=== PATIENT | male | born 1965 | race African-American/Black ===

== ENCOUNTER 2016-11-12 21:29 | Emergency (ER) | payer OTHER ==
[~2016-11-12] VITALS: Ht 185.4 cm; Wt 95.0 kg
[2016-11-12 22:10] VITALS: BP 117/75; PULSE 71; RESP 16; TEMP 98.3; O2SAT 97
[2016-11-12] MEDS ORDERED: SODIUM CHLORIDE 0.9% FLUSH 5 ML FLUSH IVF PRN (23:00)
[2016-11-12] MEDS ORDERED: SODIUM CHLOR 0.9% 1000 ML INJ 1,000 ML IV ONE (23:00)
--- NOTE | 2016-11-12 23:00 | PD ---
HPI . Altered mental status Chief Complaint: Alcohol/Drug Intoxication Time Seen by Provider: 22:53 Travel History International Travel<30 days: No Contact w/Intl Traveler<30days: No Traveled to known affect area: No History of Present Illness HPI Patient was brought to us via [facility] being found asleep on a sidewalk. The patient is reportedly complaining with body aches. PFSH Past Medical History Arthritis: Yes (RA) Heart Rhythm Problems: No Cardiac Catheterization: No Cardiovascular Problems: Yes (HTN-OFF MEDS FOR YRS) High Cholesterol: No Chest Pain: Yes Congestive Heart Failure: No Diabetes: No Diminished Hearing: No Heparin Induced Thrombocytopen: No Hypertension: Yes Musculoskeletal: Yes (CHRONIC PAIN, SCIATICA) Immunizations Current: Yes Seizures: Yes Tetanus Vaccination: Unknown Influenza Vaccination: No Past Surgical History Coronary Artery Bypass Graft: No Family History Family Myocardial Infarction: No Social History Alcohol Use: Yes (to many to count) Tobacco Use: Yes (one pack a day) Substance Use: No Allergies-Medications (Allergen,Severity, Reaction): Coded Allergies: Lisinopril (Verified Allergy, Severe, Rash, 11/12/16) Metoprolol (Verified Allergy, Severe, 11/12/16) Motrin (Verified Allergy, Severe, Hives, 11/12/16) Naproxen (Verified Allergy, Severe, Hives, 11/12/16) Tramadol (Verified Allergy, Severe, Hives, 11/12/16) Reported Meds & Prescriptions Reported Meds & Active Scripts Active No Active Prescriptions or Reported Medications Review of Systems ROS Limitations: Altered Mental Status Except as stated in HPI: all other systems reviewed are Neg Musculoskeletal: Positive: Myalgias Psychiatric: Positive: Substance Abuse Physical Exam Narrative GENERAL: The patient is sitting on the end of the stretcher snoring, brown naked with his penis in a urinal. SKIN: Warm and dry. HEAD: Atraumatic. Normocephalic. EYES: Pupils equal and round. ENT: No nasal bleeding or discharge. Mucous membranes pink and moist. NECK: Trachea midline. CARDIOVASCULAR: Regular rate and rhythm. RESPIRATORY: No accessory muscle use. Lungs are clear. No airway compromise. GASTROINTESTINAL: Abdomen soft, non-tender, nondistended. MUSCULOSKELETAL: No obvious deformities. No edema. NEUROLOGICAL: Awake and alert. No obvious cranial nerve deficits. Motor grossly within normal limits. Normal speech. PSYCHIATRIC: Appropriate mood and affect; insight and judgment poor. Data Data Last Documented VS Vital Signs Date Time Temp Pulse Resp B/P Pulse Ox O2 Delivery O2 Flow Rate FiO2 11/12/16 22:10 98.3 71 16 117/75 97 Orders Complete Blood Count With Diff (11/12/16 22:53) Basic Metabolic Panel (Bmp) (11/12/16 22:53) Drug Screen, Random Urine (11/12/16 22:53) Iv Access Insert/Monitor (11/12/16 22:53) Alcohol (Ethanol) (11/12/16 22:53) Sodium Chloride 0.9% Flush (Ns Flush) (11/12/16 23:00) Sodium Chlor 0.9% 1000 Ml Inj (Ns 1000 M (11/12/16 23:00) Creatine Kinase (Cpk) (11/12/16 22:53) Labs Laboratory Tests Test 11/12/16 23:00 Urine Opiates Screen NEG Urine Barbiturates Screen NEG Urine Amphetamines Screen NEG Urine Benzodiazepines Screen NEG Urine Cocaine Screen NEG Urine Cannabinoids Screen NEG White Blood Count 2.8 TH/MM3 Red Blood Count 3.53 MIL/MM3 Hemoglobin 11.7 GM/DL Hematocrit 33.8 % Mean Corpuscular Volume 95.6 FL Mean Corpuscular Hemoglobin 33.0 PG Mean Corpuscular Hemoglobin 34.5 % Concent Red Cell Distribution Width 13.6 % Platelet Count 231 TH/MM3 Mean Platelet Volume 7.5 FL Neutrophils (%) (Auto) 30.7 % Lymphocytes (%) (Auto) 56.9 % Monocytes (%) (Auto) 9.8 % Eosinophils (%) (Auto) 0.5 % Basophils (%) (Auto) 2.1 % Neutrophils # (Auto) 0.8 TH/MM3 Lymphocytes # (Auto) 1.6 TH/MM3 Monocytes # (Auto) 0.3 TH/MM3 Eosinophils # (Auto) 0.0 TH/MM3 Basophils # (Auto) 0.1 TH/MM3 CBC Comment AUTO DIFF Differential Total Cells 100 Counted Neutrophils % (Manual) 32 % Lymphocytes % 62 % Monocytes % 3 % Eosinophils % 2 % Basophils % 1 % Neutrophils # (Manual) 0.9 TH/MM3 Differential Comment FINAL DIFF MANUAL Platelet Estimate NORMAL Platelet Morphology Comment NORMAL Red Cell Morphology Comment NORMAL Sodium Level 138 MEQ/L Potassium Level 3.8 MEQ/L Chloride Level 103 MEQ/L Carbon Dioxide Level 25.7 MEQ/L Anion Gap 9 MEQ/L Blood Urea Nitrogen 10 MG/DL Creatinine 0.51 MG/DL Estimat Glomerular Filtration 207 ML/MIN Rate Random Glucose 86 MG/DL Calcium Level 8.1 MG/DL Total Creatine Kinase 233 U/L Ethyl Alcohol Level 374 MG/DL [facility] Medical Decision Making Medical Screen Exam Complete: Yes Emergency Medical Condition: Yes Differential Diagnosis Differential diagnosis of altered mental status includes but is not limited to infection, electrolyte abnormality, neurological event, intoxication Narrative Course Patient is brought to us by [facility] after being found asleep on a sidewalk. He admits to alcohol use. CBC has an H&H of 11.7 and 33.8. White blood count is 2.8. Chemistries are unremarkable. Alcohol level is 374. Drug screen is negative. The patient is now sleeping soundly in the bed. He is medically clear for discharge when he meghana up. Diagnosis Primary Impression: Alcohol intoxication in active alcoholic Qualified Code: F10.220 - Alcohol intoxication in active alcoholic, uncomplicated Scripts No Active Prescriptions or Reported Meds Disposition: DISCHARGE HOME Condition: Stable Denita Miles MD Nov 12, 2016 23:00
[2016-11-12 23:33] LABS: AUTOMATED NEUTROPHIL # 0.8 TH/MM3 (1.8-7.7); BASOPHIL # 0.1 TH/MM3 (0-0.2); BASOPHIL % 2.1 % (0.0-2.0); EOSINOPHIL % 0.5 % (0.0-4.0); HEMATOCRIT 33.8 % (39.0-51.0); LYMPH % 56.9 % (9.0-44.0); LYMPHOCYTE # 1.6 TH/MM3 (1.0-4.8); MEAN CELL VOLUME 95.6 FL (80.0-100.0); MEAN CORPUSCULAR HGB CONC 34.5 % (32.0-36.0); MONO % 9.8 % (0.0-8.0); NEUT % 30.7 % (16.0-70.0); PLATELET COUNT 231 TH/MM3 (150-450); RED BLOOD COUNT 3.53 MIL/MM3 (4.50-5.90); RED CELL DISTRIBUTION WIDTH 13.6 % (11.6-17.2); WHITE BLOOD COUNT 2.8 TH/MM3 (4.0-11.0)
[2016-11-12 23:36] LABS: HEMO FLAGS AUTO DIFF
[2016-11-12 23:45] LABS: AMPHETAMINE, URINE NEG (NEG); BARBITURATES, URINE NEG (NEG); COCAINE, URINE NEG (NEG)
[2016-11-12 23:57] LABS: BICARBONATE 25.7 MEQ/L (21.0-32.0); POTASSIUM 3.8 MEQ/L (3.5-5.1)
[2016-11-13 00:09] LABS: BASOPHILS 1 % (0-2); EOSINOPHILS 2 % (0-4); NEUTROPHIL # MANUAL DIFF 0.9 TH/MM3 (1.8-7.7); PLATELET ESTIMATE SMEAR NORMAL (NORMAL); PLATELET MORPHOLOGY NORMAL (NORMAL); POLYS (SEG NEUTROPHILS) 32 % (16-70); SCAN/DIFF FINAL DIFF MANUAL; WBC DIFF SAMPLE 100
[2016-11-13 05:00] VITALS: BP 144/90; PULSE 100; RESP 20; O2SAT 97
== END 2016-11-13 07:00 | disposition home or self-care (01) ==
LOC: NEPC 21:29
DX: F10.220 Alcohol dependence with intoxication, uncomplicated (principal); M79.1 Myalgia; I10 Essential (primary) hypertension; F17.200 Nicotine dependence, unspecified, uncomplicated; Z87.39 Personal history of other diseases of the musculoskeletal system and connective tissue; Z86.69 Personal history of other diseases of the nervous system and sense organs
CPT/HCPCS: 80048; 80307; 80320; 82550; 85007; 85027; 99285; J7030

== ENCOUNTER 2016-11-16 12:33 | Emergency (ER) | payer OTHER ==
[~2016-11-16] VITALS: Ht 175.3 cm; Wt 95.0 kg
[2016-11-16 13:40] VITALS: BP 155/102; PULSE 87; RESP 20; TEMP 98.1; O2SAT 100
[2016-11-16] MEDS ORDERED: THIAMINE INJ 100 MG in SODIUM CHLORIDE 0.9% INJ 100 ML IV ONE (14:00)
[2016-11-16] MEDS ORDERED: SODIUM CHLOR 0.9% 1000 ML INJ 1,000 ML IV ONE (14:00)
[2016-11-16 14:01] LABS: AUTOMATED NEUTROPHIL # 1.6 TH/MM3 (1.8-7.7); BASOPHIL % 0.4 % (0.0-2.0); EOSINOPHIL % 0.5 % (0.0-4.0); HEMO FLAGS DIFF FINAL; LYMPH % 30.8 % (9.0-44.0); LYMPHOCYTE # 0.9 TH/MM3 (1.0-4.8); MEAN CELL VOLUME 96.8 FL (80.0-100.0); MEAN CORPUSCULAR HEMOGLOBIN 32.8 PG (27.0-34.0); MEAN CORPUSCULAR HGB CONC 33.8 % (32.0-36.0); MONO % 12.2 % (0.0-8.0); NEUT % 56.1 % (16.0-70.0); PLATELET COUNT 286 TH/MM3 (150-450); RED BLOOD COUNT 3.71 MIL/MM3 (4.50-5.90); RED CELL DISTRIBUTION WIDTH 13.8 % (11.6-17.2); WHITE BLOOD COUNT 2.8 TH/MM3 (4.0-11.0)
[2016-11-16 14:15] LABS: BICARBONATE 27.1 MEQ/L (21.0-32.0); POTASSIUM 3.8 MEQ/L (3.5-5.1)
[2016-11-16 15:02] VITALS: BP 150/83; PULSE 79; RESP 16; O2SAT 97
--- NOTE | 2016-11-16 15:20 | PD ---
HPI Chief Complaint: Seizure Time Seen by Provider: 13:46 Travel History International Travel<30 days: No Contact w/Intl Traveler<30days: No Traveled to known affect area: No History of Present Illness HPI Patient is a 51-year-old male presents to the emergency Department after having a seizure. Patient apparent fell down into a small ditch with intracranial pressure by saw him and call 911. 911 helped him out of the ditch and states it was just enough water and therefore him to be covered. He presents somewhat closed this time. Patient has no complaints of time. States he was walking at home and fell down into the small ditch. Patient states he had been drinking today. EMS stated no obvious injuries were seen. [facility] Past Medical History Arthritis: Yes (RA) Heart Rhythm Problems: No Cardiac Catheterization: No Cardiovascular Problems: Yes (HTN) High Cholesterol: No Chest Pain: Yes Congestive Heart Failure: No Diabetes: No Diminished Hearing: No Heparin Induced Thrombocytopen: No Hypertension: Yes Musculoskeletal: Yes (CHRONIC PAIN, SCIATICA) Immunizations Current: Yes Seizures: Yes Tetanus Vaccination: Unknown Past Surgical History Coronary Artery Bypass Graft: No Social History Alcohol Use: Yes (to many to count) Tobacco Use: Yes (one pack a day) Substance Use: No Allergies-Medications (Allergen,Severity, Reaction): Coded Allergies: Lisinopril (Verified Allergy, Severe, Rash, 11/16/16) Metoprolol (Verified Allergy, Severe, 11/16/16) Motrin (Verified Allergy, Severe, Hives, 11/16/16) Naproxen (Verified Allergy, Severe, Hives, 11/16/16) Tramadol (Verified Allergy, Severe, Hives, 11/16/16) Reported Meds & Prescriptions Reported Meds & Active Scripts Active No Active Prescriptions or Reported Medications Review of Systems Except as stated in HPI: all other systems reviewed are Neg Physical Exam Narrative GENERAL: Well-developed well-nourished in no apparent distress SKIN: Warm and dry. HEAD: Atraumatic. Normocephalic. EYES: Pupils equal and round. No scleral icterus. No injection or drainage. ENT: No nasal bleeding or discharge. Mucous membranes pink and moist. NECK: Trachea midline. No JVD. CARDIOVASCULAR: Regular rate and rhythm. No murmur appreciated. RESPIRATORY: No accessory muscle use. Clear to auscultation. Breath sounds equal bilaterally. GASTROINTESTINAL: Abdomen soft, non-tender, nondistended. Hepatic and splenic margins not palpable. MUSCULOSKELETAL: No obvious deformities. No clubbing. No cyanosis. No edema. NEUROLOGICAL: Awake and alert. cranial nerves II through XII grossly intact nonfocal, 5-5 strength in all 4 extremities, cerebral testing normal on individual extremity basis however the patient is having imbalanced gait like was secondary to a alcohol intoxication based on his history. PSYCHIATRIC: Appropriate mood and affect; insight and judgment normal. Data Data Last Documented VS Vital Signs Date Time Temp Pulse Resp B/P Pulse Ox O2 Delivery O2 Flow Rate FiO2 11/16/16 15:37 87 20 149/89 94 11/16/16 13:40 98.1 Orders Basic Metabolic Panel (Bmp) (11/16/16 13:46) Complete Blood Count With Diff (11/16/16 13:46) Thiamine Inj (Thiamine Inj) (11/16/16 14:00) Sodium Chlor 0.9% 1000 Ml Inj (Ns 1000 M (11/16/16 14:00) Labs Laboratory Tests Test 11/16/16 13:55 White Blood Count 2.8 TH/MM3 Red Blood Count 3.71 MIL/MM3 Hemoglobin 12.2 GM/DL Hematocrit 36.0 % Mean Corpuscular Volume 96.8 FL Mean Corpuscular Hemoglobin 32.8 PG Mean Corpuscular Hemoglobin 33.8 % Concent Red Cell Distribution Width 13.8 % Platelet Count 286 TH/MM3 Mean Platelet Volume 6.8 FL Neutrophils (%) (Auto) 56.1 % Lymphocytes (%) (Auto) 30.8 % Monocytes (%) (Auto) 12.2 % Eosinophils (%) (Auto) 0.5 % Basophils (%) (Auto) 0.4 % Neutrophils # (Auto) 1.6 TH/MM3 Lymphocytes # (Auto) 0.9 TH/MM3 Monocytes # (Auto) 0.3 TH/MM3 Eosinophils # (Auto) 0.0 TH/MM3 Basophils # (Auto) 0.0 TH/MM3 CBC Comment DIFF FINAL Differential Comment Sodium Level 138 MEQ/L Potassium Level 3.8 MEQ/L Chloride Level 104 MEQ/L Carbon Dioxide Level 27.1 MEQ/L Anion Gap 7 MEQ/L Blood Urea Nitrogen 7 MG/DL Creatinine 0.59 MG/DL Estimat Glomerular Filtration 175 ML/MIN Rate Random Glucose 102 MG/DL Calcium Level 8.0 MG/DL [facility] Medical Decision Making Medical Screen Exam Complete: Yes Emergency Medical Condition: Yes Differential Diagnosis electrolyte abnormality, alcohol intoxication, alcoholism. Narrative Course Patient remained emergency department, he was observed for 3 hours in the emergency department and it hadn't no recurrent seizure activity. Patient had is cleared by Offerman CT head rule. Patient appears well in no apparent distress. He is clinically intoxicated will be allowed to remain in the emergency Department until clinically sober. Given his history and his chart review he has been noncompliant with seizure treatment in the past. The alcohol related seizures. He is not exhibiting symptoms of acute withdrawal or delirium tremens. Patient was initially marked as SIO in the department but then walked to the counter where nursing was sitting asking to go. He does endorse alcohol ingestion today but is clinically sober at this time. He has no indication to hold against his will and is stable for discharge. Diagnosis Primary Impression: Seizure Additional Impression: Alcohol intoxication in active alcoholic Qualified Code: F10.220 - Alcohol intoxication in active alcoholic, uncomplicated Scripts No Active Prescriptions or Reported Meds Disposition: 01 DISCHARGE HOME Condition: Stable Atul Rogers MD Nov 16, 2016 15:20
[2016-11-16 15:37] VITALS: BP 149/89
== END 2016-11-16 15:53 | disposition home or self-care (01) ==
LOC: NEPA 12:33
DX: R56.9 Unspecified convulsions (principal); F10.220 Alcohol dependence with intoxication, uncomplicated; I10 Essential (primary) hypertension; F17.210 Nicotine dependence, cigarettes, uncomplicated
CPT/HCPCS: 80048; 85025; 96374; 99284; J3411; J7030

== ENCOUNTER 2016-11-21 23:06 | Emergency (ER) | payer OTHER ==
[~2016-11-21] VITALS: Ht 180.3 cm; Wt 95.0 kg
[2016-11-21 23:10] VITALS: BP 129/81; PULSE 99; RESP 16; TEMP 98; O2SAT 99
[2016-11-21] MEDS ORDERED: ONDANSETRON HCL 4 MG/2 ML VIAL IV ONE (23:30)
[2016-11-21] MEDS ORDERED: SODIUM CHLOR 0.9% 1000 ML INJ 1,000 ML IV ONE (23:30)
[2016-11-21 23:48] LABS: AUTOMATED NEUTROPHIL # 2.4 TH/MM3 (1.8-7.7); BASOPHIL % 0.9 % (0.0-2.0); EOSINOPHIL % 0.7 % (0.0-4.0); HEMATOCRIT 37.3 % (39.0-51.0); HEMO FLAGS DIFF FINAL; LYMPHOCYTE # 1.3 TH/MM3 (1.0-4.8); MEAN CELL VOLUME 96.6 FL (80.0-100.0); MEAN CORPUSCULAR HEMOGLOBIN 33.3 PG (27.0-34.0); MEAN CORPUSCULAR HGB CONC 34.5 % (32.0-36.0); MONO % 11.6 % (0.0-8.0); NEUT % 56.8 % (16.0-70.0); PLATELET COUNT 194 TH/MM3 (150-450); RED BLOOD COUNT 3.86 MIL/MM3 (4.50-5.90); RED CELL DISTRIBUTION WIDTH 13.9 % (11.6-17.2); WHITE BLOOD COUNT 4.2 TH/MM3 (4.0-11.0)
[2016-11-22] LABS: ALT (GPT) 138 U/L (12-78); ANION GAP 11 MEQ/L (5-15); AST (GOT) 157 U/L (15-37); BICARBONATE 25.1 MEQ/L (21.0-32.0); BLOOD UREA NITROGEN 12 MG/DL (7-18); CHLORIDE 97 MEQ/L (98-107); GLOMERULAR FILTRATION RATE 101 ML/MIN (>89); POTASSIUM 3.4 MEQ/L (3.5-5.1); SODIUM (NA) 133 MEQ/L (136-145)
[2016-11-22 00:02] LABS: ALKALINE PHOSPHATASE 83 U/L (45-117); TOTAL BILIRUBIN ADULT 0.8 MG/DL (0.2-1.0)
[2016-11-22] MEDS ORDERED: ZOFR4TAB3 SL (00:52)
[2016-11-22] MEDS ORDERED: RANI150C PO (00:52)
--- NOTE | 2016-11-22 00:52 | PD ---
HPI Chief Complaint: GI Complaint Time Seen by Provider: 23:17 Travel History International Travel<30 days: No Contact w/Intl Traveler<30days: No Traveled to known affect area: No History of Present Illness HPI So 51-year-old man who presents to the emergency department complaining nausea vomiting since today. He has a history of alcohol use. He's had seizures several times related to alcohol use. He last drank earlier today. Presents with nausea vomiting and some diffuse abdominal discomfort. No diarrhea. No other complaints. History Past Medical History Narrative Medical Alcoholism History of high blood pressure Tetanus Vaccination: Unknown Influenza Vaccination: No Social History Alcohol Use: Yes (to many to count) Tobacco Use: Yes (one pack a day) Allergies-Medications (Allergen,Severity, Reaction): Coded Allergies: Lisinopril (Verified Allergy, Severe, Rash, 11/21/16) Metoprolol (Verified Allergy, Severe, 11/21/16) Motrin (Verified Allergy, Severe, Hives, 11/21/16) Naproxen (Verified Allergy, Severe, Hives, 11/21/16) Tramadol (Verified Allergy, Severe, Hives, 11/21/16) Reported Meds & Prescriptions Reported Meds & Active Scripts Active No Active Prescriptions or Reported Medications Review of Systems Except as stated in HPI: all other systems reviewed are Neg Physical Exam Narrative GENERAL: 51 year-old woman, no acute distress. SKIN: Warm and dry. CARDIOVASCULAR: Regular rate and rhythm. No murmur appreciated. RESPIRATORY: No accessory muscle use. Clear to auscultation. Breath sounds equal bilaterally. GASTROINTESTINAL: Abdomen soft, non-tender, nondistended. Hepatic and splenic margins not palpable. MUSCULOSKELETAL: No obvious deformities. No clubbing. No cyanosis. No edema. NEUROLOGICAL: Awake and alert. No obvious cranial nerve deficits. Motor grossly within normal limits. Normal speech. Data Data Last Documented VS Vital Signs Date Time Temp Pulse Resp B/P Pulse Ox O2 Delivery O2 Flow Rate FiO2 11/21/16 23:10 98.0 99 16 129/81 99 Room Air Orders Complete Blood Count With Diff (11/21/16 23:23) Comprehensive Metabolic Panel (11/21/16 23:23) Iv Access Insert/Monitor (11/21/16 23:23) Lipase (11/21/16 23:23) Sodium Chlor 0.9% 1000 Ml Inj (Ns 1000 M (11/21/16 23:30) Ondansetron Inj (Zofran Inj) (11/21/16 23:30) Labs Laboratory Tests Test 11/21/16 23:35 White Blood Count 4.2 TH/MM3 Red Blood Count 3.86 MIL/MM3 Hemoglobin 12.9 GM/DL Hematocrit 37.3 % Mean Corpuscular Volume 96.6 FL Mean Corpuscular Hemoglobin 33.3 PG Mean Corpuscular Hemoglobin 34.5 % Concent Red Cell Distribution Width 13.9 % Platelet Count 194 TH/MM3 Mean Platelet Volume 8.2 FL Neutrophils (%) (Auto) 56.8 % Lymphocytes (%) (Auto) 30.0 % Monocytes (%) (Auto) 11.6 % Eosinophils (%) (Auto) 0.7 % Basophils (%) (Auto) 0.9 % Neutrophils # (Auto) 2.4 TH/MM3 Lymphocytes # (Auto) 1.3 TH/MM3 Monocytes # (Auto) 0.5 TH/MM3 Eosinophils # (Auto) 0.0 TH/MM3 Basophils # (Auto) 0.0 TH/MM3 CBC Comment DIFF FINAL Differential Comment Sodium Level 133 MEQ/L Potassium Level 3.4 MEQ/L Chloride Level 97 MEQ/L Carbon Dioxide Level 25.1 MEQ/L Anion Gap 11 MEQ/L Blood Urea Nitrogen 12 MG/DL Creatinine 0.95 MG/DL Estimat Glomerular Filtration 101 ML/MIN Rate Random Glucose 93 MG/DL Calcium Level 8.7 MG/DL Total Bilirubin 0.8 MG/DL Aspartate Amino Transf 157 U/L (AST/SGOT) Alanine Aminotransferase 138 U/L (ALT/SGPT) Alkaline Phosphatase 83 U/L Total Protein 8.5 GM/DL Albumin 3.6 GM/DL Lipase 295 U/L [facility] Medical Decision Making Medical Screen Exam Complete: Yes Emergency Medical Condition: Yes Interpretation(s) LABS: CBC remarkable for mild anemia. CMP with elevated AST and ALT. Lipase is normal. Differential Diagnosis Vomiting, pancreatitis, gastritis, other Narrative Course Medical decision making the 51 year-old woman with nausea vomiting epigastric abdominal discomfort, history of alcoholism, suspect gastritis, rule out pancreatitis, recommend supportive treatment. Diagnosis Primary Impression: Nausea & vomiting Qualified Code: R11.2 - Non-intractable vomiting with nausea, unspecified vomiting type Additional Impression: Gastritis Qualified Code: K29.20 - Acute alcoholic gastritis without hemorrhage Additional Instructions: Use Zofran as needed for nausea or vomiting. Take ranitidine as needed for gastritis symptoms. Avoid alcohol. Return to the emergency department for any new or worsening symptoms. Med/Other Pt SpecificInfo: Prescription(s) given Scripts Ranitidine 150 Mg [id number] Mg PO BID #60 CAP Prov:Elias Hayward MD 11/22/16 Ondansetron Odt (Zofran Odt)4 Mg Tab4 Mg SL Q8HR PRN (Nausea/Vomiting) #15 TAB May substitute non-ODT form. Prov:Elias Hayward MD 11/22/16 Disposition: 01 DISCHARGE HOME Condition: Stable Elias Hayward MD Nov 22, 2016 00:52
== END 2016-11-22 04:40 | disposition home or self-care (01) ==
LOC: NEPE 23:06
DX: R11.2 Nausea with vomiting, unspecified (principal); K29.20 Alcoholic gastritis without bleeding; I10 Essential (primary) hypertension; F17.210 Nicotine dependence, cigarettes, uncomplicated; F10.10 Alcohol abuse, uncomplicated
CPT/HCPCS: 80053; 83690; 85025; 96361; 96374; 99284; J2405; J7030

== ENCOUNTER 2016-12-09 20:28 | Emergency (ER) | payer OTHER ==
[~2016-12-09] VITALS: Ht 185.4 cm; Wt 100.0 kg
[~2016-12-09 20:28] MED LIST: RANI150C PO; ZOFR4TAB3 SL
[2016-12-09 22:07] VITALS: BP 130/85; PULSE 70; RESP 14; TEMP 98; O2SAT 95
--- NOTE | 2016-12-09 22:15 | PD ---
HPI Chief Complaint: Alcohol/Drug Intoxication Time Seen by Provider: 21:54 Travel History International Travel<30 days: No Contact w/Intl Traveler<30days: No Traveled to known affect area: No History of Present Illness HPI 51yo M well known to our ED was brought in by [facility] for alcohol intoxication. Pt found sleeping on floor intoxicated. Pt arousable and admits to drinking alcohol. Pt moving all extremities with no signs of overt trauma. Denies any fall or complaints. Pt is intoxicated. VS stable. PFSH Past Medical History Arthritis: Yes (RA) Heart Rhythm Problems: No Cardiac Catheterization: No Cardiovascular Problems: Yes (HTN) High Cholesterol: No Chest Pain: Yes Congestive Heart Failure: No Diabetes: No Diminished Hearing: No Heparin Induced Thrombocytopen: No Hypertension: Yes Musculoskeletal: Yes (CHRONIC PAIN, SCIATICA) Immunizations Current: Yes Seizures: Yes Past Surgical History Surgical History: No Previous Surgery Coronary Artery Bypass Graft: No Social History Alcohol Use: Yes (to many to count) Tobacco Use: Yes (one pack a day) Substance Use: No Allergies-Medications (Allergen,Severity, Reaction): Coded Allergies: Lisinopril (Verified Allergy, Severe, Rash, 12/09/16) Metoprolol (Verified Allergy, Severe, 12/09/16) Motrin (Verified Allergy, Severe, Hives, 12/09/16) Naproxen (Verified Allergy, Severe, Hives, 12/09/16) Tramadol (Verified Allergy, Severe, Hives, 12/09/16) Reported Meds & Prescriptions Reported Meds & Active Scripts Active Review of Systems Except as stated in HPI: all other systems reviewed are Neg Physical Exam Narrative GENERAL: 51yo M intoxicated. SKIN: Warm and dry. HEAD: Atraumatic. Normocephalic. EYES: Pupils equal and round. ENT: No nasal bleeding or discharge. Mucous membranes pink and moist. NECK: Trachea midline. No JVD. CARDIOVASCULAR: Regular rate and rhythm. No murmur appreciated. RESPIRATORY: No accessory muscle use. Clear to auscultation. Breath sounds equal bilaterally. GASTROINTESTINAL: Abdomen soft, non-tender, nondistended. No rebound tenderness or guarding. BACK: No signs of trauma. No midline ttp or step off. MUSCULOSKELETAL: No obvious deformities. No clubbing. No cyanosis. No edema. NEUROLOGICAL: Intoxicated. Motor grossly within normal limits. Data Data Last Documented VS Vital Signs Date Time Temp Pulse Resp B/P Pulse Ox O2 Delivery O2 Flow Rate FiO2 12/09/16 22:36 98.6 75 20 135/87 96 12/09/16 22:10 Room Air Orders Complete Blood Count With Diff (12/09/16 22:10) Basic Metabolic Panel (Bmp) (12/09/16 22:10) Alcohol (Ethanol) (12/09/16 22:10) Quality Control Microbiology Supervisor / Telemetry [id number] (12/09/16 22:10) Calcium Gluconate Inj (Calcium Gluconate (12/09/16 23:45) Thiamine Inj (Thiamine Inj) (12/09/16 23:45) Labs Laboratory Tests Test 12/09/16 22:30 White Blood Count 3.0 TH/MM3 Red Blood Count 3.55 MIL/MM3 Hemoglobin 11.8 GM/DL Hematocrit 34.3 % Mean Corpuscular Volume 96.7 FL Mean Corpuscular Hemoglobin 33.2 PG Mean Corpuscular Hemoglobin 34.3 % Concent Red Cell Distribution Width 13.9 % Platelet Count 222 TH/MM3 Mean Platelet Volume 7.4 FL Neutrophils (%) (Auto) 26.0 % Lymphocytes (%) (Auto) 55.3 % Monocytes (%) (Auto) 16.5 % Eosinophils (%) (Auto) 0.9 % Basophils (%) (Auto) 1.3 % Neutrophils # (Auto) 0.8 TH/MM3 Lymphocytes # (Auto) 1.6 TH/MM3 Monocytes # (Auto) 0.5 TH/MM3 Eosinophils # (Auto) 0.0 TH/MM3 Basophils # (Auto) 0.0 TH/MM3 CBC Comment AUTO DIFF Differential Total Cells 100 Counted Neutrophils % (Manual) 27 % Lymphocytes % 53 % Monocytes % 19 % Basophils % 1 % Neutrophils # (Manual) 0.8 TH/MM3 Differential Comment FINAL DIFF MANUAL Platelet Estimate NORMAL Platelet Morphology Comment NORMAL Red Cell Morphology Comment NORMAL Sodium Level 132 MEQ/L Potassium Level 3.8 MEQ/L Chloride Level 97 MEQ/L Carbon Dioxide Level 24.7 MEQ/L Anion Gap 10 MEQ/L Blood Urea Nitrogen 5 MG/DL Creatinine 0.61 MG/DL Estimat Glomerular Filtration 168 ML/MIN Rate Random Glucose 80 MG/DL Calcium Level 7.7 MG/DL Ethyl Alcohol Level 405 MG/DL MDM Medical Decision Making Medical Screen Exam Complete: Yes Emergency Medical Condition: Yes Differential Diagnosis Alcohol intoxication vs. electrolyte abnormality Narrative Course 51yo M with alcohol intoxication. No signs of trauma. Pt is arousable, answers some questions when you wake him up and moves all extremities. Will check labs, sober and reevaluate. Labs reviewed, no WBC, at baseline. H/H is also at baseline. Mild hyponatremia 132 at baseline. Low calcium, will give calcium gluconate. Blood alcohol 405. Thiamine given. Pt medically clear when sober and walking without assistance. Diagnosis Primary Impression: Alcohol intoxication Qualified Code: F10.120 - Alcohol intoxication, uncomplicated Patient Instructions: General Instructions Departure Forms: Tests/Procedures Additional Instructions: Please follow up with your PMD in 3-7 days. Return to the ED if symptoms worsen. Med/Other Pt SpecificInfo: No Change to Meds Disposition: 01 DISCHARGE HOME Condition: Stable DorantesSaydaOlivia DO Dec 09, 2016 22:15
[2016-12-09 22:36] VITALS: BP 135/87; PULSE 75; RESP 20; TEMP 98.6; O2SAT 96
[2016-12-09 22:45] LABS: AUTOMATED NEUTROPHIL # 0.8 TH/MM3 (1.8-7.7); BASOPHIL % 1.3 % (0.0-2.0); EOSINOPHIL % 0.9 % (0.0-4.0); HEMATOCRIT 34.3 % (39.0-51.0); LYMPH % 55.3 % (9.0-44.0); LYMPHOCYTE # 1.6 TH/MM3 (1.0-4.8); MEAN CELL VOLUME 96.7 FL (80.0-100.0); MEAN CORPUSCULAR HEMOGLOBIN 33.2 PG (27.0-34.0); MEAN CORPUSCULAR HGB CONC 34.3 % (32.0-36.0); MONO % 16.5 % (0.0-8.0); PLATELET COUNT 222 TH/MM3 (150-450); RED BLOOD COUNT 3.55 MIL/MM3 (4.50-5.90); RED CELL DISTRIBUTION WIDTH 13.9 % (11.6-17.2)
[2016-12-09 22:46] LABS: HEMO FLAGS AUTO DIFF
[2016-12-09 23:08] LABS: BICARBONATE 24.7 MEQ/L (21.0-32.0); POTASSIUM 3.8 MEQ/L (3.5-5.1)
[2016-12-09 23:12] LABS: BASOPHILS 1 % (0-2); NEUTROPHIL # MANUAL DIFF 0.8 TH/MM3 (1.8-7.7); POLYS (SEG NEUTROPHILS) 27 % (16-70); WBC DIFF SAMPLE 100
[2016-12-09 23:13] LABS: PLATELET ESTIMATE SMEAR NORMAL (NORMAL); PLATELET MORPHOLOGY NORMAL (NORMAL); SCAN/DIFF FINAL DIFF MANUAL
[2016-12-09] MEDS ORDERED: CALCIUM GLUCONATE INJ 1 GM in DEXTROSE 5% IN WATER 100ML INJ 100 ML IV ONE ×2 (23:45)
[2016-12-09] MEDS ORDERED: THIAMINE INJ 100 MG in SODIUM CHLORIDE 0.9% INJ 100 ML IV ONE (23:45)
== END 2016-12-10 05:58 | disposition home or self-care (01) ==
LOC: NEPA 20:28
DX: F10.120 Alcohol abuse with intoxication, uncomplicated (principal); Y90.8 Blood alcohol level of 240 mg/100 ml or more
CPT/HCPCS: 80048; 80320; 85007; 85027; 96365; 96368; 99284; J0610; J3411

== ENCOUNTER 2016-12-13 18:06 | Emergency (ER) | payer OTHER ==
[~2016-12-13] VITALS: Ht 177.8 cm; Wt 75.0 kg
[2016-12-13 18:15] VITALS: BP 137/93; PULSE 67; RESP 16; TEMP 97.6; O2SAT 95
[2016-12-13 18:18] VITALS: BP 137/93; PULSE 71; RESP 12; O2SAT 95
[2016-12-13] MEDS ORDERED: SODIUM CHLORID 0.9% 500 ML INJ 500 ML IV ONE (18:30)
[2016-12-13 18:45] LABS: AUTOMATED NEUTROPHIL # 0.6 TH/MM3 (1.8-7.7); BASOPHIL % 0.3 % (0.0-2.0); EOSINOPHIL % 0.3 % (0.0-4.0); HEMATOCRIT 34.1 % (39.0-51.0); LYMPH % 51.9 % (9.0-44.0); LYMPHOCYTE # 1.1 TH/MM3 (1.0-4.8); MEAN CELL VOLUME 99.3 FL (80.0-100.0); MEAN CORPUSCULAR HEMOGLOBIN 33.4 PG (27.0-34.0); MEAN CORPUSCULAR HGB CONC 33.6 % (32.0-36.0); MONO % 17.5 % (0.0-8.0); PLATELET COUNT 167 TH/MM3 (150-450); RED BLOOD COUNT 3.44 MIL/MM3 (4.50-5.90); RED CELL DISTRIBUTION WIDTH 14.1 % (11.6-17.2); WHITE BLOOD COUNT 2.1 TH/MM3 (4.0-11.0)
[2016-12-13 18:48] LABS: HEMO FLAGS AUTO DIFF
--- NOTE | 2016-12-13 18:52 | PD ---
HPI Chief Complaint: Alcohol/Drug Intoxication Time Seen by Provider: 18:20 Travel History International Travel<30 days: No Contact w/Intl Traveler<30days: No Traveled to known affect area: No History of Present Illness HPI 51 y/o male presents with acute alcohol intoxication. A bystander said he maybe had a seizure but this is hard to confirm. Patient is very intoxicated here and can only tell me his name. Significant history is limited. FOR[facility]LY [facility] Past Medical History Narrative Medical Per records Medical History: Unable to Obtain Arthritis: Yes (RA) Heart Rhythm Problems: No Cardiac Catheterization: No Cardiovascular Problems: Yes (HTN) High Cholesterol: No Chest Pain: Yes Congestive Heart Failure: No Diabetes: No Diminished Hearing: No Heparin Induced Thrombocytopen: No Hypertension: Yes Musculoskeletal: Yes (CHRONIC PAIN, SCIATICA) Immunizations Current: Yes Seizures: Yes Influenza Vaccination: No Past Surgical History Surgical History: Unable to Obtain Coronary Artery Bypass Graft: No Social History Narrative Social History Per records Alcohol Use: Yes (to many to count) Tobacco Use: Yes (one pack a day) Substance Use: No Allergies-Medications (Allergen,Severity, Reaction): Coded Allergies: Lisinopril (Verified Allergy, Severe, Rash, 12/13/16) Metoprolol (Verified Allergy, Severe, 12/13/16) Motrin (Verified Allergy, Severe, Hives, 12/13/16) Naproxen (Verified Allergy, Severe, Hives, 12/13/16) Tramadol (Verified Allergy, Severe, Hives, 12/13/16) Reported Meds & Prescriptions Reported Meds & Active Scripts Active No Active Prescriptions or Reported Medications Review of Systems ROS Limitations: Intoxication Physical Exam Exam Limitations: Intoxication Narrative GENERAL: Well-nourished, well-developed patient. SKIN: Warm and dry. HEAD: Normocephalic and atraumatic. EYES: No injection or drainage. Pupils equal ENT: No nasal drainage noted. NECK: Supple, trachea midline. CARDIOVASCULAR: Regular rate and rhythm RESPIRATORY: Breath sounds equal bilaterally at apices. No accessory muscle use. GASTROINTESTINAL: Abdomen soft, non-tender, nondistended. NEUROLOGICAL: Moves all extremities, eyes open to pain, limited slurred speech Data Data Last Documented VS Vital Signs Date Time Temp Pulse Resp B/P Pulse Ox O2 Delivery O2 Flow Rate FiO2 12/13/16 19:08 78 12 155/91 96 Room Air 12/13/16 18:15 97.6 Orders Complete Blood Count With Diff (12/13/16 18:21) Basic Metabolic Panel (Bmp) (12/13/16 18:21) Iv Access Insert/Monitor (12/13/16 18:21) Drug Screen, Random Urine (12/13/16 18:21) Alcohol (Ethanol) (12/13/16 18:21) Sodium Chlorid 0.9% 500 Ml Inj (Ns 500 M (12/13/16 18:30) Ct Brain W/O Iv Contrast(Rout) (12/13/16 ) Protein Corrected Calcium(Pcc) (12/13/16 18:30) Calcium Gluconate Inj (Calcium Gluconate (12/13/16 20:30) Labs Laboratory Tests Test 12/13/16 18:30 White Blood Count 2.1 TH/MM3 Red Blood Count 3.44 MIL/MM3 Hemoglobin 11.5 GM/DL Hematocrit 34.1 % Mean Corpuscular Volume 99.3 FL Mean Corpuscular Hemoglobin 33.4 PG Mean Corpuscular Hemoglobin 33.6 % Concent Red Cell Distribution Width 14.1 % Platelet Count 167 TH/MM3 Mean Platelet Volume 7.2 FL Neutrophils (%) (Auto) 30.0 % Lymphocytes (%) (Auto) 51.9 % Monocytes (%) (Auto) 17.5 % Eosinophils (%) (Auto) 0.3 % Basophils (%) (Auto) 0.3 % Neutrophils # (Auto) 0.6 TH/MM3 Lymphocytes # (Auto) 1.1 TH/MM3 Monocytes # (Auto) 0.4 TH/MM3 Eosinophils # (Auto) 0.0 TH/MM3 Basophils # (Auto) 0.0 TH/MM3 CBC Comment AUTO DIFF Differential Total Cells 100 Counted Neutrophils % (Manual) 32 % Band Neutrophils % 1 % Lymphocytes % 52 % Monocytes % 10 % Eosinophils % 2 % Basophils % 3 % Neutrophils # (Manual) 0.7 TH/MM3 Differential Comment FINAL DIFF MANUAL Platelet Estimate NORMAL Platelet Morphology Comment NORMAL Red Cell Morphology Comment NORMAL Sodium Level 133 MEQ/L Potassium Level 3.2 MEQ/L Chloride Level 101 MEQ/L Carbon Dioxide Level 22.7 MEQ/L Anion Gap 9 MEQ/L Blood Urea Nitrogen 6 MG/DL Creatinine 0.60 MG/DL Estimat Glomerular Filtration 171 ML/MIN Rate Random Glucose 75 MG/DL Calcium Level 7.0 MG/DL Protein Corrected Calcium 6.9 MG/DL Total Protein 7.4 GM/DL Ethyl Alcohol Level 463 MG/DL MDM Medical Decision Making Medical Screen Exam Complete: Yes Emergency Medical Condition: Yes Medical Record Reviewed: Yes (past history confirmed) Interpretation(s) CBC & BMP Diagram 12/13/16 18:30 alcohol is 463 calcium low at 6.9-replace with 1g of calcium gluconate Last [address] 12/13/16 0000 Signed Impressions: Service Date/Time: Thursday, December 13, 2016 18:47 - CONCLUSION: Normal examination. Fredi Hernandez MD Differential Diagnosis Alcohol intoxication, intracranial, hyponatremia, seizure disorder, hypoglycemia Narrative Course Will check blood work, CT brain and monitor 8pm, trying to ambulate but very unsteady, was put back in bed by staff; calcium will be replaced and observed in er until sober Physician Communication Physician Communication dr [email or web address] agrees to monitor till clinically sober for d/c Diagnosis Primary Impression: Alcohol intoxication in active alcoholic Qualified Code: F10.229 - Alcohol intoxication in active alcoholic, with unspecified complication Additional Impression: Hypocalcemia Scripts No Active Prescriptions or Reported Meds Sherron Carvajal MD Dec 13, 2016 18:52
[2016-12-13 19:08] VITALS: BP 155/91; PULSE 78; RESP 12; O2SAT 96
--- NOTE | 2016-12-13 19:27 | RADRPT ---
EXAM DATE/TIME: 12/13/2016 18:47 [facility] COMPARISON: No previous studies available for comparison. INDICATIONS : Altered mental status RADIATION DOSE: CTDIvol (mGy) MEDICAL HISTORY : None SURGICAL HISTORY : None ENCOUNTER: Initial ACUITY: Acute PAIN SCALE: None LOCATION: Head TECHNIQUE: Multiple contiguous axial images were obtained of the head. Using automated exposure control and adj ustment of the mA and/or kV according to patient size, radiation dose was kept as low as reasonably a chievable to obtain optimal diagnostic quality images. FINDINGS: CEREBRUM: The ventricles are normal for age. No evidence of midline shift, mass lesion, hemorrhage or acute in farction. No extra-axial fluid collections are seen. POSTERIOR FOSSA: The cerebellum and brainstem are intact. The 4th ventricle is midline. The cerebellopontine angle i s unremarkable. EXTRACRANIAL: The visualized portion of the orbits is intact. SKULL: The calvaria is intact. No evidence of skull fracture. CONCLUSION: Normal examination. Fredi Hernandez MD on December 13, 2016 at 19:24 Board Certified Radiologist. This report was verified electronically.
[2016-12-13 20:03] LABS: BICARBONATE 22.7 MEQ/L (21.0-32.0); POTASSIUM 3.2 MEQ/L (3.5-5.1)
[2016-12-13 20:10] LABS: BANDS 1 % (0-6); BASOPHILS 3 % (0-2); EOSINOPHILS 2 % (0-4); NEUTROPHIL # MANUAL DIFF 0.7 TH/MM3 (1.8-7.7); PLATELET ESTIMATE SMEAR NORMAL (NORMAL); PLATELET MORPHOLOGY NORMAL (NORMAL); POLYS (SEG NEUTROPHILS) 32 % (16-70); SCAN/DIFF FINAL DIFF MANUAL; WBC DIFF SAMPLE 100
[2016-12-13 20:29] LABS: CALCIUM-PROTEIN CORRECTED 6.9 MG/DL (8.5-10.1)
[2016-12-13] MEDS ORDERED: CALCIUM GLUCONATE INJ 1 GM in SODIUM CHLORIDE 0.9% INJ 90 ML IV ONE (20:30)
[2016-12-14 02:55] LABS: POTASSIUM 3.9 MEQ/L (3.5-5.1)
--- NOTE | 2016-12-14 03:16 | PD ---
Data Data Last Documented VS Vital Signs Date Time Temp Pulse Resp B/P Pulse Ox O2 Delivery O2 Flow Rate FiO2 12/13/16 19:08 78 12 155/91 96 Room Air 12/13/16 18:15 97.6 Orders Complete Blood Count With Diff (12/13/16 18:21) Basic Metabolic Panel (Bmp) (12/13/16 18:21) Iv Access Insert/Monitor (12/13/16 18:21) Drug Screen, Random Urine (12/13/16 18:21) Alcohol (Ethanol) (12/13/16 18:21) Sodium Chlorid 0.9% 500 Ml Inj (Ns 500 M (12/13/16 18:30) Ct Brain W/O Iv Contrast(Rout) (12/13/16 ) Protein Corrected Calcium(Pcc) (12/13/16 18:30) Calcium Gluconate Inj (Calcium Gluconate (12/13/16 20:30) Basic Metabolic Panel (Bmp) (12/14/16 05:00) Alcohol (Ethanol) (12/14/16 05:00) Labs Laboratory Tests Test 12/13/16 12/14/16 18:30 02:00 White Blood Count 2.1 TH/MM3 Red Blood Count 3.44 MIL/MM3 Hemoglobin 11.5 GM/DL Hematocrit 34.1 % Mean Corpuscular Volume 99.3 FL Mean Corpuscular Hemoglobin 33.4 PG Mean Corpuscular Hemoglobin 33.6 % Concent Red Cell Distribution Width 14.1 % Platelet Count 167 TH/MM3 Mean Platelet Volume 7.2 FL Neutrophils (%) (Auto) 30.0 % Lymphocytes (%) (Auto) 51.9 % Monocytes (%) (Auto) 17.5 % Eosinophils (%) (Auto) 0.3 % Basophils (%) (Auto) 0.3 % Neutrophils # (Auto) 0.6 TH/MM3 Lymphocytes # (Auto) 1.1 TH/MM3 Monocytes # (Auto) 0.4 TH/MM3 Eosinophils # (Auto) 0.0 TH/MM3 Basophils # (Auto) 0.0 TH/MM3 CBC Comment AUTO DIFF Differential Total Cells 100 Counted Neutrophils % (Manual) 32 % Band Neutrophils % 1 % Lymphocytes % 52 % Monocytes % 10 % Eosinophils % 2 % Basophils % 3 % Neutrophils # (Manual) 0.7 TH/MM3 Differential Comment FINAL DIFF MANUAL Platelet Estimate NORMAL Platelet Morphology Comment NORMAL Red Cell Morphology Comment NORMAL Sodium Level 133 MEQ/L 139 MEQ/L Potassium Level 3.2 MEQ/L 3.9 MEQ/L Chloride Level 101 MEQ/L 104 MEQ/L Carbon Dioxide Level 22.7 MEQ/L 26.0 MEQ/L Anion Gap 9 MEQ/L 9 MEQ/L Blood Urea Nitrogen 6 MG/DL 5 MG/DL Creatinine 0.60 MG/DL 0.67 MG/DL Estimat Glomerular Filtration 171 ML/MIN 151 ML/MIN Rate Random Glucose 75 MG/DL 85 MG/DL Calcium Level 7.0 MG/DL 8.7 MG/DL Protein Corrected Calcium 6.9 MG/DL Total Protein 7.4 GM/DL Ethyl Alcohol Level 463 MG/DL 291 MG/DL [facility] Supervised Visit with JOE: No Narrative Course Patient was checked out to me pending repeat alcohol level and repeat calcium level. He was acutely intoxicated. Patient is now up and ambulatory about the department with a steady gait. BMP Diagram 12/13/16 18:30 12/14/16 02:00 Calcium level has improved from 7.0 to 8.7. Alcohol level has decreased from 463 to 291. Patient is now stable for discharge. Diagnosis Primary Impression: Alcohol intoxication in active alcoholic Qualified Code: F10.229 - Alcohol intoxication in active alcoholic, with unspecified complication Additional Impression: Hypocalcemia Patient Instructions: General Instructions, Hypocalcemia (DC) Scripts No Active Prescriptions or Reported Meds Disposition: 01 DISCHARGE HOME Condition: Stable Denita Miles MD Dec 14, 2016 03:16
[2016-12-14 03:20] VITALS: BP 148/77; PULSE 81; RESP 16; O2SAT 97
== END 2016-12-14 03:48 | disposition home or self-care (01) ==
LOC: NEPA 18:06
DX: F10.220 Alcohol dependence with intoxication, uncomplicated (principal); E83.51 Hypocalcemia; I10 Essential (primary) hypertension; F17.210 Nicotine dependence, cigarettes, uncomplicated
CPT/HCPCS: 70450; 80048; 80320; 84155; 85007; 85027; 96374; 99284; J0610; J7040

== ENCOUNTER 2016-12-15 21:09 | Emergency (ER) | payer OTHER ==
[2016-12-15 21:11] VITALS: BP 129/86; PULSE 87; RESP 16; TEMP 97.9; O2SAT 96
[2016-12-16] MEDS ORDERED: ROBA500T PO (02:20)
== END 2016-12-16 00:46 | disposition left against medical advice (07) ==
LOC: NED 21:09
DX: M54.9 Dorsalgia, unspecified (principal)
CPT/HCPCS: 99281

== ENCOUNTER 2016-12-16 01:12 | Emergency (ER) | payer OTHER ==
[~2016-12-16] VITALS: Ht 180.3 cm; Wt 86.0 kg
[2016-12-16 01:13] VITALS: BP 145/81; PULSE 99; RESP 16; TEMP 97.9; O2SAT 99
--- NOTE | 2016-12-16 01:57 | PD ---
HPI Chief Complaint: Back/ Neck Pain or Injury Time Seen by Provider: 01:55 Travel History International Travel<30 days: No Contact w/Intl Traveler<30days: No Traveled to known affect area: No History of Present Illness HPI 51-year-old black male presents emergency Department with complaints of exacerbation of his chronic back pain. He states that he has a history of chronic back pain and osteoarthritis. He states that this is a typical exacerbation. He admits to a history of alcohol abuse. Alcohol withdrawal seizures. He denies any fever or chills. No shortness of breath, nausea, vomiting, bowel pain or urinary symptoms. No focal numbness or tingling. No focal weakness. No acute bowel or bladder changes. PFSH Past Medical History Arthritis: Yes (RA) Heart Rhythm Problems: No Cardiac Catheterization: No Cardiovascular Problems: Yes (HTN) High Cholesterol: No Chest Pain: Yes Congestive Heart Failure: No Diabetes: No Diminished Hearing: No Heparin Induced Thrombocytopen: No Hypertension: Yes Musculoskeletal: Yes (CHRONIC PAIN, SCIATICA) Immunizations Current: Yes Seizures: Yes Past Surgical History Coronary Artery Bypass Graft: No Social History Alcohol Use: Yes (to many to count) Tobacco Use: Yes (one pack a day) Substance Use: No Allergies-Medications (Allergen,Severity, Reaction): Coded Allergies: Lisinopril (Verified Allergy, Severe, Rash, 12/16/16) Metoprolol (Verified Allergy, Severe, 12/16/16) Motrin (Verified Allergy, Severe, Hives, 12/16/16) Naproxen (Verified Allergy, Severe, Hives, 12/16/16) Tramadol (Verified Allergy, Severe, Hives, 12/16/16) Reported Meds & Prescriptions Reported Meds & Active Scripts Active No Active Prescriptions or Reported Medications Review of Systems Except as stated in HPI: all other systems reviewed are Neg Physical Exam Narrative GENERAL: Well-developed, well-nourished in no acute distress. Nontoxic appearing. HEAD: Normocephalic, atraumatic. EYES: Pupils equal round and reactive. Extraocular motions intact. No scleral icterus. No injection or drainage. ENT: TMs clear without erythema. The external auditory canals clear. Nose: clear . Posterior pharynx is pink and moist. No tonsillar edema or exudate. Uvula midline. Airway patent. NECK: Trachea midline.Supple, nontender, moves head freely. No central bony tenderness or spasm. CARDIOVASCULAR: Regular rate and rhythm without murmurs, gallops, or rubs. RESPIRATORY: Clear to auscultation. Breath sounds equal bilaterally. No wheezes , rales, or rhonchi. GASTROINTESTINAL: Abdomen soft, non-tender, nondistended. No hepato-splenomegaly , or palpable masses. No guarding. EXTREMITIES: No clubbing, cyanosis, or edema. No joint tenderness, effusion, or edema noted. BACK: Complaints of lower back discomfort without point localization. No central bony pain. Sits up in bed at 90 and moves freely without obvious discomfort. No gross spasm. Without deformity or crepitance. No flank tenderness. Data Data Last Documented VS Vital Signs Date Time Temp Pulse Resp B/P Pulse Ox O2 Delivery O2 Flow Rate FiO2 12/16/16 01:13 97.9 99 16 145/81 99 Room Air Orders Methocarbamol (Robaxin) (12/16/16 02:30) MDM Medical Decision Making Medical Screen Exam Complete: Yes Emergency Medical Condition: Yes Medical Record Reviewed: Yes Differential Diagnosis MDM: High Differential diagnoses: AAA,Fracture, sprain, strain, HNP, nerve or vascular injury, epidural abscess, pilonidal cyst, pyelonephritis, UTI, nephrolithiasis, ureterolithiasis Narrative Course Patient is allergic to Motrin and tramadol. With his history of alcohol abuse I would avoid Tylenol as well. The patient will be given Robaxin 500 by mouth. This is acute exacerbation of chronic back pain Diagnosis Primary Impression: Acute exacerbation of chronic low back pain Patient Instructions: General Instructions Additional Instructions: Rest. Ice for the next 3 days followed by heat . Robaxin. Follow-up with a primary care doctor in one week. Return to the ER for emergencies. Med/Other Pt SpecificInfo: Prescription(s) given Scripts Methocarbamol (Robaxin)500 Mg [id number] Mg PO QID #28 TAB Prov:Priya Pérez MD 12/16/16 Disposition: 01 DISCHARGE HOME Condition: Stable Fredi Bean Dec 16, 2016 01:57
[2016-12-16] MEDS ORDERED: ROBA500T PO (02:20)
[2016-12-16] MEDS ORDERED: METHOCARBAMOL 500 MG TAB PO ONE (02:30)
== END 2016-12-16 03:14 | disposition home or self-care (01) ==
LOC: NEPB 01:12
DX: M54.5 Low back pain (principal); G89.29 Other chronic pain; I10 Essential (primary) hypertension; F17.210 Nicotine dependence, cigarettes, uncomplicated
CPT/HCPCS: 99283

== ENCOUNTER 2016-12-20 15:20 | Emergency (ER) | payer OTHER ==
[~2016-12-20] VITALS: Ht 180.3 cm; Wt 87.0 kg
[~2016-12-20 15:20] MED LIST changes: -RANI150C PO; +ROBA500T PO; -ZOFR4TAB3 SL
[2016-12-20 15:22] VITALS: BP 116/75; PULSE 87; RESP 18; TEMP 98.4; O2SAT 100
--- NOTE | 2016-12-20 16:07 | PD ---
HPI Chief Complaint: Alcohol/Drug Intoxication Time Seen by Provider: 15:41 Travel History International Travel<30 days: No Contact w/Intl Traveler<30days: No Traveled to known affect area: No History of Present Illness HPI This is a quite pleasant 51-year-old male who presents to the emergency department having been sleeping on the median having been waiting for a bus. He has a history of chronic alcoholism. He has no medical complaints. He was brought in by [facility] because he was intoxicated in public. He has been thinking a lot about stopping drinking but is not currently interested in detox. PFSH Past Medical History Arthritis: Yes (RA) Heart Rhythm Problems: No Cardiac Catheterization: No Cardiovascular Problems: Yes (HTN) High Cholesterol: No Chest Pain: Yes Congestive Heart Failure: No Diabetes: No Diminished Hearing: No Heparin Induced Thrombocytopen: No Hypertension: Yes Musculoskeletal: Yes (CHRONIC PAIN, SCIATICA) Immunizations Current: Yes Seizures: Yes Tetanus Vaccination: Unknown Influenza Vaccination: No Past Surgical History Coronary Artery Bypass Graft: No Family History Family Myocardial Infarction: No Social History Alcohol Use: Yes Tobacco Use: Yes (one pack a day) Substance Use: No Allergies-Medications (Allergen,Severity, Reaction): Coded Allergies: Lisinopril (Verified Allergy, Severe, Rash, 12/20/16) Metoprolol (Verified Allergy, Severe, 12/20/16) Motrin (Verified Allergy, Severe, Hives, 12/20/16) Naproxen (Verified Allergy, Severe, Hives, 12/20/16) Tramadol (Verified Allergy, Severe, Hives, 12/20/16) Reported Meds & Prescriptions Reported Meds & Active Scripts Active Review of Systems Except as stated in HPI: all other systems reviewed are Neg Physical Exam Narrative GENERAL:Well appearing, no acute distress SKIN: Warm and dry. HEAD: Atraumatic. Normocephalic. EYES: Pupils equal and round. No injection or drainage. ENT: Moist mucous membranes NECK: Trachea midline. CARDIOVASCULAR: Regular rate and rhythm. No murmur appreciated. RESPIRATORY: Clear to auscultation. Breath sounds equal bilaterally. GASTROINTESTINAL: Abdomen soft, non-tender, nondistended. MUSCULOSKELETAL: No obvious deformities. NEUROLOGICAL: Awake and alert. No obvious cranial nerve deficits. Moving all extremities PSYCHIATRIC: Appropriate mood and affect; insight and judgment normal. Data Data Last Documented VS Vital Signs Date Time Temp Pulse Resp B/P Pulse Ox O2 Delivery O2 Flow Rate FiO2 12/20/16 15:22 98.4 87 18 116/75 100 MDM Medical Decision Making Medical Screen Exam Complete: Yes Emergency Medical Condition: Yes Interpretation(s) afebrile, no tachycardia, normotensive Differential Diagnosis Alcohol intoxication Narrative Course This is a 51-year-old male who presents to the emergency department having been asleep on the median waiting for a bus intoxicated. He is quite pleasant and we had along conversation about his family in [facility] [place], his aust[place] as a [employer]- [employer], and his history of alcoholism which stems from drinking alcohol with his . He is from [place] and is hoping to go back there. He is not currently interested in detox. He has no medical complaints. Patient is clinically sober on my assessment and can be discharged home. Diagnosis Primary Impression: Acute alcohol intoxication Qualified Code: F10.120 - Acute alcohol intoxication, uncomplicated Additional Instructions: Follow up with Cheryl Viera in regards to psychiatric or substance related issues at: [address] [place], [place] [id number] Med/Other Pt SpecificInfo: No Change to Meds Disposition: 01 DISCHARGE HOME Condition: Stable Ashwini Maciel MD Dec 20, 2016 16:07
== END 2016-12-20 17:11 | disposition home or self-care (01) ==
LOC: NEPC 15:20
DX: F10.120 Alcohol abuse with intoxication, uncomplicated (principal); I10 Essential (primary) hypertension; F17.200 Nicotine dependence, unspecified, uncomplicated; Z87.39 Personal history of other diseases of the musculoskeletal system and connective tissue; Z86.69 Personal history of other diseases of the nervous system and sense organs
CPT/HCPCS: 99284

== ENCOUNTER 2016-12-23 01:38 | Emergency (ER) | payer OTHER ==
[2016-12-23 01:45] VITALS: RESP 16; O2SAT 98
[2016-12-23] MEDS ORDERED: SODIUM CHLOR 0.9% 1000 ML INJ 1,000 ML IV ONE (01:45)
[2016-12-23] MEDS ORDERED: THIAMINE INJ 100 MG in SODIUM CHLORIDE 0.9% INJ 100 ML IV ONE (01:45)
[2016-12-23] MEDS ORDERED: ONDANSETRON HCL 4 MG/2 ML VIAL IV ONE (01:45)
[2016-12-23] MEDS ORDERED: ZOFR4TAB3 SL (02:05)
--- NOTE | 2016-12-23 02:05 | PD ---
HPI Chief Complaint: Abdominal Pain Time Seen by Provider: 01:41 Travel History International Travel<30 days: No Contact w/Intl Traveler<30days: No Traveled to known affect area: No History of Present Illness HPI The patient is a 51 year old male who presents to the [facility] emergency department with a history of reportedly not feeling well for the last 4-1/2 months. He reports that he has a history of alcohol abuse and has has been interested in alcohol detox. The patient reports that he has had seizures in the past with alcohol withdrawal. He reports that over the last 2 days he's had nausea, vomiting, and diarrhea. The patient denies having any fevers or chills. The patient reports that he drank 3 alcoholic beverages today. The patient has been in the emergency department on 5 separate occasions earlier this month related to similar symptoms. The patient reports that he has a midepigastric abdominal discomfort associated with the vomiting and diarrhea. The patient denies having any blood in his stool or black or tarry stools. He denies having any blood in his emesis. The patient denies any recent cough, congestion, neck pain, chest pain, shortness of breath, urinary symptoms, or neurologic symptoms. [facility] Past Medical History Narrative Medical The patient's past medical history is significant for alcohol abuse, history of seizures, arthritis, sciatica, chronic pain, hypertension. Arthritis: Yes (RA) Heart Rhythm Problems: No Cardiac Catheterization: No Cardiovascular Problems: Yes (HTN) High Cholesterol: No Chest Pain: Yes Congestive Heart Failure: No Diabetes: No Diminished Hearing: No Heparin Induced Thrombocytopen: No Hypertension: Yes Musculoskeletal: Yes (CHRONIC PAIN, SCIATICA) Immunizations Current: Yes Seizures: Yes Past Surgical History Narrative Surgical The patient denies any past surgical history. Coronary Artery Bypass Graft: No Social History Alcohol Use: Yes Tobacco Use: Yes (one pack a day) Substance Use: No Allergies-Medications (Allergen,Severity, Reaction): Coded Allergies: Lisinopril (Verified Allergy, Severe, Rash, 12/23/16) Metoprolol (Verified Allergy, Severe, 12/23/16) Motrin (Verified Allergy, Severe, Hives, 12/23/16) Naproxen (Verified Allergy, Severe, Hives, 12/23/16) Tramadol (Verified Allergy, Severe, Hives, 12/23/16) Reported Meds & Prescriptions Reported Meds & Active Scripts Active Zofran Odt (Ondansetron Odt) 4 Mg Tab 4 Mg SL Q6HR PRN Review of Systems Except as stated in HPI: all other systems reviewed are Neg General / Constitutional: No: Fever Eyes: No: Visual changes HENT: No: Headaches Cardiovascular: No: Chest Pain or Discomfort Respiratory: No: Shortness of Breath Gastrointestinal: Positive: Nausea, Vomiting, Diarrhea, Abdominal Pain, Changes in Bowel Habits, No: Hematemesis, Hematochezia, Indigestion, Loss of Appetite Genitourinary: No: Dysuria Musculoskeletal: No: Pain Skin: No Rash Neurologic: No: Weakness, Focal Abnormalities, Change in Mentation, Slurred Speech, Sensory Disturbance Psychiatric: Positive: Substance Abuse, No: Depression, Suicidal Ideations, Homicidal Ideation Endocrine: No: Polydipsia Hematologic/Lymphatic: No: Easy Bruising Physical Exam Narrative General: The patient is a well-developed well-nourished male in no acute distress Head and Neck exam: Head is normocephalic atraumatic. Eyes: EOMI, pupils are equal round and reactive to light. Nose: Midline septum with pink mucous membranes Mouth: Dentition unremarkable. Moist mucus membranes. Posterior oropharynx is not erythematous. No tonsillar hypertrophy. Uvula midline. Airway patent. Neck: No palpable lymphadenopathy. No nuchal rigidity. No thyromegaly. Cardiovascular: Regular rate and rhythm without murmurs, gallops, or rubs. No pulse deficit to the extremities. Lungs: Clear to auscultation bilaterally. No wheezes, rhonchi, or rales. Abdomen: Soft, without tenderness to palpation in all 4 quadrants of the abdomen. No guarding, rebound, or rigidity. Normal bowel sounds are audible. No tenderness on palpation of McBurney's point. Extremities: No clubbing, cyanosis, or edema. 2+ pulses in all 4 extremities. Back: No spinous process tenderness to palpation. No costovertebral angle tenderness to palpation. Neurologic Exam: Cranial nerves 2-12 were intact on exam. Strength is 5/5 in all 4 extremities. No sensory deficits noted. The patient is oriented to person, place, time, and situation. Skin Exam: No rash noted. Intact skin that is warm and dry. Data Data Last Documented VS Vital Signs Date Time Temp Pulse Resp B/P Pulse Ox O2 Delivery O2 Flow Rate FiO2 12/23/16 05:35 98 20 146/92 100 12/23/16 01:45 Room Air Orders Complete Blood Count With Diff (12/23/16 01:42) Comprehensive Metabolic Panel (12/23/16 01:42) Lipase (12/23/16 01:42) Urinalysis - C+S If Indicated (12/23/16 01:42) Iv Access Insert/Monitor (12/23/16 01:42) Ecg Monitoring (12/23/16 01:42) Oximetry (12/23/16 01:42) Drug Screen, Random Urine (12/23/16 01:42) Alcohol (Ethanol) (12/23/16 01:42) Sodium Chlor 0.9% 1000 Ml Inj (Ns 1000 M (12/23/16 01:45) Ondansetron Inj (Zofran Inj) (12/23/16 01:45) Thiamine Inj (Thiamine Inj) (12/23/16 01:45) Labs Laboratory Tests Test 12/23/16 12/23/16 02:00 04:20 White Blood Count 2.1 TH/MM3 Red Blood Count 3.67 MIL/MM3 Hemoglobin 12.6 GM/DL Hematocrit 35.5 % Mean Corpuscular Volume 96.6 FL Mean Corpuscular Hemoglobin 34.3 PG Mean Corpuscular Hemoglobin 35.5 % Concent Red Cell Distribution Width 13.9 % Platelet Count 169 TH/MM3 Mean Platelet Volume 7.4 FL Neutrophils (%) (Auto) 35.3 % Lymphocytes (%) (Auto) 44.5 % Monocytes (%) (Auto) 18.0 % Eosinophils (%) (Auto) 0.6 % Basophils (%) (Auto) 1.6 % Neutrophils # (Auto) 0.7 TH/MM3 Lymphocytes # (Auto) 0.9 TH/MM3 Monocytes # (Auto) 0.4 TH/MM3 Eosinophils # (Auto) 0.0 TH/MM3 Basophils # (Auto) 0.0 TH/MM3 CBC Comment AUTO DIFF Differential Total Cells 100 Counted Neutrophils % (Manual) 27 % Lymphocytes % 56 % Monocytes % 15 % Eosinophils % 2 % Neutrophils # (Manual) 0.6 TH/MM3 Differential Comment FINAL DIFF MANUAL Platelet Estimate NORMAL Platelet Morphology Comment NORMAL Red Cell Morphology Comment NORMAL Sodium Level 138 MEQ/L Potassium Level 3.6 MEQ/L Chloride Level 101 MEQ/L Carbon Dioxide Level 24.2 MEQ/L Anion Gap 13 MEQ/L Blood Urea Nitrogen 6 MG/DL Creatinine 0.63 MG/DL Estimat Glomerular Filtration 162 ML/MIN Rate Random Glucose 87 MG/DL Calcium Level 8.3 MG/DL Total Bilirubin 0.3 MG/DL Aspartate Amino Transf 105 U/L (AST/SGOT) Alanine Aminotransferase 125 U/L (ALT/SGPT) Alkaline Phosphatase 70 U/L Total Protein 8.2 GM/DL Albumin 3.5 GM/DL Lipase 235 U/L Ethyl Alcohol Level 263 MG/DL Urine Color LIGHT-YELLOW Urine Turbidity CLEAR Urine pH 5.5 Urine Specific Newton 1.002 Urine Protein NEG mg/dL Urine Glucose (UA) NEG mg/dL Urine Ketones NEG mg/dL Urine Occult Blood NEG Urine Nitrite NEG Urine Bilirubin NEG Urine Urobilinogen LESS THAN 2.0 MG/DL Urine Leukocyte Esterase NEG Urine WBC 1 /hpf Microscopic Urinalysis Comment CULT NOT INDICATED Urine Opiates Screen NEG Urine Barbiturates Screen NEG Urine Amphetamines Screen NEG Urine Benzodiazepines Screen NEG Urine Cocaine Screen NEG Urine Cannabinoids Screen NEG MDM Medical Decision Making Medical Screen Exam Complete: Yes Emergency Medical Condition: Yes Medical Record Reviewed: Yes Interpretation(s) Laboratory Tests Test 12/23/16 12/23/16 02:00 04:20 White Blood Count 2.1 TH/MM3 Red Blood Count 3.67 MIL/MM3 Hemoglobin 12.6 GM/DL Hematocrit 35.5 % Mean Corpuscular Volume 96.6 FL Mean Corpuscular Hemoglobin 34.3 PG Mean Corpuscular Hemoglobin 35.5 % Concent Red Cell Distribution Width 13.9 % Platelet Count 169 TH/MM3 Mean Platelet Volume 7.4 FL Neutrophils (%) (Auto) 35.3 % Lymphocytes (%) (Auto) 44.5 % Monocytes (%) (Auto) 18.0 % Eosinophils (%) (Auto) 0.6 % Basophils (%) (Auto) 1.6 % Neutrophils # (Auto) 0.7 TH/MM3 Lymphocytes # (Auto) 0.9 TH/MM3 Monocytes # (Auto) 0.4 TH/MM3 Eosinophils # (Auto) 0.0 TH/MM3 Basophils # (Auto) 0.0 TH/MM3 CBC Comment AUTO DIFF Differential Total Cells 100 Counted Neutrophils % (Manual) 27 % Lymphocytes % 56 % Monocytes % 15 % Eosinophils % 2 % Neutrophils # (Manual) 0.6 TH/MM3 Differential Comment FINAL DIFF MANUAL Platelet Estimate NORMAL Platelet Morphology Comment NORMAL Red Cell Morphology Comment NORMAL Sodium Level 138 MEQ/L Potassium Level 3.6 MEQ/L Chloride Level 101 MEQ/L Carbon Dioxide Level 24.2 MEQ/L Anion Gap 13 MEQ/L Blood Urea Nitrogen 6 MG/DL Creatinine 0.63 MG/DL Estimat Glomerular Filtration 162 ML/MIN Rate Random Glucose 87 MG/DL Calcium Level 8.3 MG/DL Total Bilirubin 0.3 MG/DL Aspartate Amino Transf 105 U/L (AST/SGOT) Alanine Aminotransferase 125 U/L (ALT/SGPT) Alkaline Phosphatase 70 U/L Total Protein 8.2 GM/DL Albumin 3.5 GM/DL Lipase 235 U/L Ethyl Alcohol Level 263 MG/DL Urine Color LIGHT-YELLOW Urine Turbidity CLEAR Urine pH 5.5 Urine Specific Newton 1.002 Urine Protein NEG mg/dL Urine Glucose (UA) NEG mg/dL Urine Ketones NEG mg/dL Urine Occult Blood NEG Urine Nitrite NEG Urine Bilirubin NEG Urine Urobilinogen LESS THAN 2.0 MG/DL Urine Leukocyte Esterase NEG Urine WBC 1 /hpf Microscopic Urinalysis Comment CULT NOT INDICATED Urine Opiates Screen NEG Urine Barbiturates Screen NEG Urine Amphetamines Screen NEG Urine Benzodiazepines Screen NEG Urine Cocaine Screen NEG Urine Cannabinoids Screen NEG Differential Diagnosis Gastroenteritis, versus withdrawal syndrome, versus electrolyte abnormality, versus dehydration Narrative Course During the course of the patients emergency department visit, the patients history, examination, and differential diagnosis were reviewed with the patient. The patient had IV access obtained and blood work sent for analysis. The patient was placed on a lockstitch back maker with oximetry and blood pressure monitoring. A call was placed out to the [facility] to identify if any male beds were available for detox. No beds were reportedly available at this time. The patient was provided normal saline 1 L IV fluid bolus, Zofran 4 mg IV. The patients laboratory studies were reviewed and remarkable for a white count of 2.1, from reviewing the record the patient has a history of leukopenia in this range previously, hemoglobin 12.6, platelets 169 with 44.5 lymphocytes, 18 monocytes. CMP is remarkable for a BUN of 6, calcium 8.3, AST 105, ALT 125, lipase 235, urinalysis is unremarkable, urine drug screen is negative, alcohol 263. The patient was observed in the emergency department for improvement in his mentation and ability to walk without assistance. The patient is interested in alcohol related detox. I explained that the local detox center is a [facility]. He will be given information regarding their location and number for follow-up. I explained that he will need to call on a daily basis to be placed on her list for an opening bed. The patient is resting comfortably and feels better, is alert and in no distress. The patients results and examination findings were discussed with him. The repeat examination is unremarkable and benign. The history, exam, diagnostic testing, and current condition do not suggest any significant pathology to warrant further testing, continued ED treatment, admission, or surgical evaluation at this point. The vital signs have been stable. The patient does not have uncontrollable pain, intractable vomiting, or other significant symptoms. The patient's condition is stable and appropriate for discharge. The patient will pursue further outpatient evaluation with a primary care physician or other designated or consulting physician as indicated in the discharge instructions. The patient expressed understanding and was agreeable with this plan. Diagnosis Primary Impression: Alcohol abuse Additional Impression: Nausea, vomiting, and diarrhea Referrals: [facility] 1 day Patient Instructions: Abuse of Alcohol (ED), Acute Diarrhea (ED), Acute Nausea and Vomiting (ED), General Instructions Med/Other Pt SpecificInfo: Prescription(s) given Scripts Ondansetron Odt (Zofran Odt)4 Mg Tab4 Mg SL Q6HR PRN (Nausea/Vomiting) #7 TAB Ref 0 Prov:Priya Pérez MD 12/23/16 Disposition: 01 DISCHARGE HOME Condition: Stable Priya Pérez MD Dec 23, 2016 02:05
[2016-12-23 02:12] LABS: AUTOMATED NEUTROPHIL # 0.7 TH/MM3 (1.8-7.7); BASOPHIL % 1.6 % (0.0-2.0); EOSINOPHIL % 0.6 % (0.0-4.0); HEMATOCRIT 35.5 % (39.0-51.0); LYMPH % 44.5 % (9.0-44.0); LYMPHOCYTE # 0.9 TH/MM3 (1.0-4.8); MEAN CELL VOLUME 96.6 FL (80.0-100.0); MEAN CORPUSCULAR HEMOGLOBIN 34.3 PG (27.0-34.0); MEAN CORPUSCULAR HGB CONC 35.5 % (32.0-36.0); NEUT % 35.3 % (16.0-70.0); PLATELET COUNT 169 TH/MM3 (150-450); RED BLOOD COUNT 3.67 MIL/MM3 (4.50-5.90); RED CELL DISTRIBUTION WIDTH 13.9 % (11.6-17.2); WHITE BLOOD COUNT 2.1 TH/MM3 (4.0-11.0)
[2016-12-23 02:15] LABS: HEMO FLAGS AUTO DIFF
[2016-12-23 02:31] LABS: ALT (GPT) 125 U/L (12-78); ANION GAP 13 MEQ/L (5-15); AST (GOT) 105 U/L (15-37); BICARBONATE 24.2 MEQ/L (21.0-32.0); BLOOD UREA NITROGEN 6 MG/DL (7-18); CHLORIDE 101 MEQ/L (98-107); GLOMERULAR FILTRATION RATE 162 ML/MIN (>89); POTASSIUM 3.6 MEQ/L (3.5-5.1); SODIUM (NA) 138 MEQ/L (136-145)
[2016-12-23 02:33] LABS: ALKALINE PHOSPHATASE 70 U/L (45-117); TOTAL BILIRUBIN ADULT 0.3 MG/DL (0.2-1.0)
[2016-12-23 02:47] LABS: EOSINOPHILS 2 % (0-4); NEUTROPHIL # MANUAL DIFF 0.6 TH/MM3 (1.8-7.7); POLYS (SEG NEUTROPHILS) 27 % (16-70); WBC DIFF SAMPLE 100
[2016-12-23 02:48] LABS: PLATELET ESTIMATE SMEAR NORMAL (NORMAL); PLATELET MORPHOLOGY NORMAL (NORMAL); SCAN/DIFF FINAL DIFF MANUAL
[2016-12-23 04:39] LABS: BLOOD, URINE NEG (NEG); GLUCOSE,URINE NEG (NEG); KETONE, URINE NEG (NEG); NITRITE,URINE NEG (NEG); PH, URINE 5.5 (5.0-8.5); URINE COLOR LIGHT-YELLOW (YELLW/STRAW)
[2016-12-23 04:44] LABS: COMMENT (UR) CULT NOT INDICATED; CULTURE IF INDICATED CULT NOT INDICATED
[2016-12-23 04:47] LABS: AMPHETAMINE, URINE NEG (NEG); BARBITURATES, URINE NEG (NEG); COCAINE, URINE NEG (NEG)
[2016-12-23 05:35] VITALS: BP 146/92; PULSE 98; RESP 20; O2SAT 100
== END 2016-12-23 08:26 | disposition home or self-care (01) ==
LOC: NEPC 01:38
DX: F10.10 Alcohol abuse, uncomplicated (principal); R11.2 Nausea with vomiting, unspecified; R19.7 Diarrhea, unspecified; R10.13 Epigastric pain; I10 Essential (primary) hypertension; F17.210 Nicotine dependence, cigarettes, uncomplicated
CPT/HCPCS: 80053; 80307; 80320; 81001; 83690; 85007; 85027; 96365; 96375; 99284; J2405; J3411; J7030

== ENCOUNTER 2017-01-03 02:21 | Emergency (ER) | payer OTHER ==
[~2017-01-03 02:21] MED LIST changes: -ROBA500T PO; +ZOFR4TAB3 SL
[2017-01-03 02:24] VITALS: BP 123/73; PULSE 99; RESP 15; TEMP 97.9; O2SAT 98
[2017-01-03] MEDS ORDERED: SODIUM CHLORIDE 0.9% FLUSH 5 ML FLUSH IVF PRN (04:00)
--- NOTE | 2017-01-03 04:02 | PD ---
HPI Chief Complaint: Alcohol/Drug Intoxication Time Seen by Provider: 03:47 Travel History International Travel<30 days: No Contact w/Intl Traveler<30days: No Traveled to known affect area: No History of Present Illness HPI 51-year-old male with history of alcohol abuse, rheumatoid arthritis, also arthritis, here for evaluation of generalized body aches and pains. The patient claims of pain in his chest, back, legs. Pain is constant, worse with movement and palpation. He admits to drinking alcohol tonight. He is not fully cooperative with history and physical. PFSH Past Medical History Arthritis: Yes (RA) Heart Rhythm Problems: No Cardiac Catheterization: No Cardiovascular Problems: Yes (HTN) High Cholesterol: No Chest Pain: Yes Congestive Heart Failure: No Diabetes: No Diminished Hearing: No Heparin Induced Thrombocytopen: No Hypertension: Yes Musculoskeletal: Yes (CHRONIC PAIN, SCIATICA) Immunizations Current: Yes Seizures: Yes Past Surgical History Coronary Artery Bypass Graft: No Social History Alcohol Use: Yes (DAILY) Tobacco Use: Yes (1 PPD) Substance Use: No Allergies-Medications (Allergen,Severity, Reaction): Coded Allergies: Lisinopril (Verified Allergy, Severe, Rash, 01/03/17) Metoprolol (Verified Allergy, Severe, 01/03/17) Motrin (Verified Allergy, Severe, Hives, 01/03/17) Naproxen (Verified Allergy, Severe, Hives, 01/03/17) Tramadol (Verified Allergy, Severe, Hives, 01/03/17) Reported Meds & Prescriptions Reported Meds & Active Scripts Active Zofran Odt (Ondansetron Odt) 4 Mg Tab 4 Mg SL Q6HR PRN Review of Systems Except as stated in HPI: all other systems reviewed are Neg Physical Exam Narrative GENERAL: Well-developed, well-nourished, sleeping comfortably on stretcher, no acute distress. SKIN: Warm and dry. No rash. No pallor. HEAD: Atraumatic. Normocephalic. EYES: Pupils equal and round. No scleral icterus. No injection or drainage. ENT: Mucous membranes pink and moist. NECK: Trachea midline. No JVD. CARDIOVASCULAR: Regular rate and rhythm. RESPIRATORY: No accessory muscle use. Clear to auscultation. Breath sounds equal bilaterally. GASTROINTESTINAL: Abdomen soft, non-tender, nondistended. MUSCULOSKELETAL: No obvious deformities. No clubbing. No cyanosis. No edema. NEUROLOGICAL: Awake and alert. No obvious cranial nerve deficits. Motor grossly within normal limits. Normal speech. Data Data Last Documented VS Vital Signs Date Time Temp Pulse Resp B/P Pulse Ox O2 Delivery O2 Flow Rate FiO2 01/03/17 06:04 95 18 121/83 99 Room Air 01/03/17 02:24 97.9 Orders Electrocardiogram (01/03/17 02:28) Ckmb (Isoenzyme) Profile (01/03/17 03:55) Complete Blood Count With Diff (01/03/17 03:55) Comprehensive Metabolic Panel (01/03/17 03:55) Magnesium (Mg) (01/03/17 03:55) Prothrombin Time / Inr (Pt) (01/03/17 03:55) Act Partial Throm Time (Ptt) (01/03/17 03:55) Troponin I (01/03/17 03:55) Chest, Single Ap (01/03/17 03:55) Ecg Monitoring (01/03/17 03:55) Iv Access Insert/Monitor (01/03/17 03:55) Oximetry (01/03/17 03:55) Sodium Chloride 0.9% Flush (Ns Flush) (01/03/17 04:00) Alcohol (Ethanol) (01/03/17 03:55) CKMB (01/03/17 04:10) CKMB% (01/03/17 04:10) Troponin I (01/03/17 06:02) Labs Laboratory Tests Test 01/03/17 01/03/17 04:10 06:00 White Blood Count 2.6 TH/MM3 Red Blood Count 3.49 MIL/MM3 Hemoglobin 11.8 GM/DL Hematocrit 34.4 % Mean Corpuscular Volume 98.6 FL Mean Corpuscular Hemoglobin 33.9 PG Mean Corpuscular Hemoglobin 34.4 % Concent Red Cell Distribution Width 13.5 % Platelet Count 204 TH/MM3 Mean Platelet Volume 7.2 FL Neutrophils (%) (Auto) % Lymphocytes (%) (Auto) % Monocytes (%) (Auto) % Eosinophils (%) (Auto) % Basophils (%) (Auto) % Neutrophils # (Auto) TH/MM3 Lymphocytes # (Auto) TH/MM3 Monocytes # (Auto) TH/MM3 Eosinophils # (Auto) TH/MM3 Basophils # (Auto) TH/MM3 CBC Comment AUTO DIFF Differential Total Cells 100 Counted Neutrophils % (Manual) 35 % Lymphocytes % 48 % Monocytes % 16 % Basophils % 1 % Neutrophils # (Manual) 0.9 TH/MM3 Differential Comment FINAL DIFF MANUAL Platelet Estimate NORMAL Platelet Morphology Comment NORMAL Prothrombin Time 10.8 SEC Prothromb Time International 1.0 RATIO Ratio Activated Partial 28.2 SEC Thromboplast Time Sodium Level 131 MEQ/L Potassium Level 3.5 MEQ/L Chloride Level 96 MEQ/L Carbon Dioxide Level 24.2 MEQ/L Anion Gap 11 MEQ/L Blood Urea Nitrogen 6 MG/DL Creatinine 0.62 MG/DL Estimat Glomerular Filtration 165 ML/MIN Rate Random Glucose 86 MG/DL Calcium Level 8.0 MG/DL Magnesium Level 1.9 MG/DL Total Bilirubin 0.3 MG/DL Aspartate Amino Transf 155 U/L (AST/SGOT) Alanine Aminotransferase 164 U/L (ALT/SGPT) Alkaline Phosphatase 71 U/L Total Creatine Kinase 295 U/L Creatine Kinase MB 3.3 NG/ML Troponin I LESS THAN 0.02 LESS THAN 0.02 NG/ML NG/ML Total Protein 8.1 GM/DL Albumin 3.4 GM/DL Ethyl Alcohol Level 258 MG/DL [facility] Medical Decision Making Medical Screen Exam Complete: Yes Emergency Medical Condition: Yes Medical Record Reviewed: Yes Interpretation(s) EKG: Sinus, rate 84, normal axis, normal intervals, no acute ischemic abnormality. Differential Diagnosis Alcohol intoxication, malingering, musculoskeletal pain, ACS, pneumothorax, pericarditis, PE, pneumonia Narrative Course Initial vital signs show heart rate 99, blood pressure 123/73, pulse ox 98% on room air, oral temp of 97.9F. CBC shows WBC 2.6, hemoglobin 11.8, hematocrit 34.4, platelets 204. CMP is remarkable for sodium 131, chloride 96, AST 155, ALT 164, otherwise unremarkable. Cardiac enzymes are negative. Alcohol level is 258. Chest x-ray: No infiltrate seen. Submaximal inspiration. Delta troponin is also negative. The patient was made aware of all findings. He is resting comfortably. He is stable for discharge home with outpatient follow-up with a primary care physician this week. He is requesting the name of a neurologist follow-up with as he has had seizures in the past. He was informed on when to return to the emergency department. Diagnosis Primary Impression: Alcohol intoxication Qualified Code: F10.120 - Alcohol intoxication, uncomplicated Additional Impression: Atypical chest pain Referrals: Marcus Rosario MD Neurologist Primary Care Physician 3 days [facility] 3 days Additional Instructions: Follow-up with a primary care physician this week. Follow-up at [facility] for help with alcoholism. Return to the emergency department for worsening symptoms or any other concerns. Disposition: 01 DISCHARGE HOME Condition: Stable Grant So MD Jan 03, 2017 04:02
--- NOTE | 2017-01-03 04:23 | RADRPT ---
EXAM DATE/TIME: 01/03/2017 04:08 [place] COMPARISON: CHEST SINGLE AP, March 11, 2016, 22:36. CHEST SINGLE AP, July 28, 2016, 4:10. INDICATIONS : Possible chest pain. MEDICAL HISTORY : None. SURGICAL HISTORY : None. ENCOUNTER: Initial ACUITY: 1 day PAIN SCORE: Non-responsive. LOCATION: Bilateral chest FINDINGS: Mild rotation of the patient towards the right. There is a lesser degree of inspiration than on prio r exam with associated crowding of the bronchopulmonary markings. No definite infiltrate seen. The heart is normal in configuration. CONCLUSION: No infiltrates seen. Submaximal inspiration. Garrison Barraza MD on January 03, 2017 at 4:20 Board Certified Radiologist. This report was verified electronically.
[2017-01-03 04:33] LABS: HEMATOCRIT 34.4 % (39.0-51.0); MEAN CELL VOLUME 98.6 FL (80.0-100.0); MEAN CORPUSCULAR HEMOGLOBIN 33.9 PG (27.0-34.0); MEAN CORPUSCULAR HGB CONC 34.4 % (32.0-36.0); PLATELET COUNT 204 TH/MM3 (150-450); RED BLOOD COUNT 3.49 MIL/MM3 (4.50-5.90); RED CELL DISTRIBUTION WIDTH 13.5 % (11.6-17.2); WHITE BLOOD COUNT 2.6 TH/MM3 (4.0-11.0)
[2017-01-03 04:43] LABS: HEMO FLAGS AUTO DIFF
[2017-01-03 04:50] LABS: APTT (PATIENT) 28.2 SEC (24.3-30.1); PROTHROMBIN TIME - PATIENT 10.8 SEC (9.8-11.6)
[2017-01-03 04:58] LABS: ALT (GPT) 164 U/L (12-78); ANION GAP 11 MEQ/L (5-15); AST (GOT) 155 U/L (15-37); BICARBONATE 24.2 MEQ/L (21.0-32.0); BLOOD UREA NITROGEN 6 MG/DL (7-18); CHLORIDE 96 MEQ/L (98-107); GLOMERULAR FILTRATION RATE 165 ML/MIN (>89); MAGNESIUM 1.9 MG/DL (1.5-2.5); POTASSIUM 3.5 MEQ/L (3.5-5.1); SODIUM (NA) 131 MEQ/L (136-145)
[2017-01-03 05:02] LABS: ALKALINE PHOSPHATASE 71 U/L (45-117); CREATINE KINASE 295 U/L (39-308); TOTAL BILIRUBIN ADULT 0.3 MG/DL (0.2-1.0)
[2017-01-03 05:17] LABS: CKMB 3.3 NG/ML (0.5-3.6)
[2017-01-03 06:04] VITALS: BP 121/83; PULSE 95; RESP 18; O2SAT 99
[2017-01-03 06:25] LABS: BASOPHILS 1 % (0-2); NEUTROPHIL # MANUAL DIFF 0.9 TH/MM3 (1.8-7.7); POLYS (SEG NEUTROPHILS) 35 % (16-70); WBC DIFF SAMPLE 100
[2017-01-03 06:26] LABS: PLATELET ESTIMATE SMEAR NORMAL (NORMAL); PLATELET MORPHOLOGY NORMAL (NORMAL); SCAN/DIFF FINAL DIFF MANUAL
[2017-01-03 07:08] VITALS: RESP 17; O2SAT 99
[2017-01-03 07:15] VITALS: BP 140/76; TEMP 97.8
--- NOTE | 2017-01-03 14:14 | EKG ---
Date Performed: 01/03/2017 Time Performed: 02:35:22 PTAGE: 51 years EKG: Sinus rhythm Compared to prior tracing no significant change NORMAL ECG PREVIOUS TRACING : 07/28/2016 06.35 DOCTOR: Rodolfo Dos Santos Interpretating Date/Time 01/03/2017 14:13:33
== END 2017-01-03 07:15 | disposition home or self-care (01) ==
LOC: NEPE 02:21
DX: F10.120 Alcohol abuse with intoxication, uncomplicated (principal); R07.89 Other chest pain; I10 Essential (primary) hypertension; F17.210 Nicotine dependence, cigarettes, uncomplicated
CPT/HCPCS: 71010; 80053; 80307; 82550; 82552; 83735; 84484; 85007; 85027; 85610; 85730; 93005

== ENCOUNTER 2017-01-04 23:47 | Emergency (ER) | payer OTHER ==
[~2017-01-04] VITALS: Ht 180.3 cm; Wt 90.0 kg
[2017-01-04 23:54] VITALS: BP 127/98; PULSE 70; RESP 16; TEMP 98.3; O2SAT 96
--- NOTE | 2017-01-05 01:59 | PD ---
HPI Chief Complaint: Medical Clearance Time Seen by Provider: 01:45 Travel History International Travel<30 days: No Contact w/Intl Traveler<30days: No Traveled to known affect area: No History of Present Illness HPI 51-year-old male presents emergency pharmacy and that he felt like he was A seizure. He's been here about 2 hours. Now states he feels normal. No other complaints. History Past Medical History Narrative Medical RA Hypertension Chronic pain Seizures Past Surgical History Surgical History: No Previous Surgery Social History Alcohol Use: Yes (DAILY) Tobacco Use: Yes (1 PPD) Allergies-Medications (Allergen,Severity, Reaction): Coded Allergies: Lisinopril (Verified Allergy, Severe, Rash, 01/05/17) Metoprolol (Verified Allergy, Severe, 01/05/17) Motrin (Verified Allergy, Severe, Hives, 01/05/17) Naproxen (Verified Allergy, Severe, Hives, 01/05/17) Tramadol (Verified Allergy, Severe, Hives, 01/05/17) Reported Meds & Prescriptions Reported Meds & Active Scripts Active Zofran Odt (Ondansetron Odt) 4 Mg Tab 4 Mg SL Q6HR PRN Review of Systems Except as stated in HPI: all other systems reviewed are Neg Physical Exam Narrative GENERAL: 51-year-old man, sleeping in the room when I entered. No complaints. SKIN: Warm and dry. NECK: Trachea midline. No JVD. CARDIOVASCULAR: Regular rate and rhythm. No murmur appreciated. RESPIRATORY: No accessory muscle use. Clear to auscultation. Breath sounds equal bilaterally. GASTROINTESTINAL: Abdomen soft, non-tender, nondistended. Hepatic and splenic margins not palpable. MUSCULOSKELETAL: No obvious deformities. No edema. NEUROLOGICAL: Arnold easily. No obvious cranial nerve deficits. Motor grossly within normal limits. Normal speech. PSYCHIATRIC: Appropriate mood and affect; insight and judgment normal. Data Data Last Documented VS Vital Signs Date Time Temp Pulse Resp B/P Pulse Ox O2 Delivery O2 Flow Rate FiO2 01/04/17 23:54 98.3 70 16 127/98 96 Room Air MDM Medical Decision Making Medical Screen Exam Complete: Yes Emergency Medical Condition: Yes Differential Diagnosis Intoxication, seizures, other Narrative Course Medical decision making 51-year-old man now without complaint. Initially said he felt like his got a seizure. Probably was intoxicated. Stable for discharge. Diagnosis Primary Impression: Seizure Additional Instructions: Continue current medications. Avoid alcohol. Follow-up with a primary physician. Med/Other Pt SpecificInfo: No Change to Meds Disposition: 01 DISCHARGE HOME Condition: Stable Elias Hayward MD Jan 05, 2017 01:59
[2017-01-05 04:45] VITALS: BP 130/76
== END 2017-01-05 05:10 | disposition home or self-care (01) ==
LOC: NEPE 23:47
DX: R56.9 Unspecified convulsions (principal); I10 Essential (primary) hypertension; G89.29 Other chronic pain; F17.200 Nicotine dependence, unspecified, uncomplicated; Z86.69 Personal history of other diseases of the nervous system and sense organs; Z87.39 Personal history of other diseases of the musculoskeletal system and connective tissue
CPT/HCPCS: 99282

== ENCOUNTER 2017-06-17 16:07 | Emergency (ER) | payer OTHER ==
[~2017-06-17] VITALS: Ht 175.3 cm; Wt 86.0 kg
[2017-06-17 16:19] VITALS: BP 120/80; PULSE 112; RESP 20; TEMP 98.5; O2SAT 100
== END 2017-06-17 17:15 | disposition left against medical advice (07) ==
LOC: NEDAMB 16:07
DX: R22.43 Localized swelling, mass and lump, lower limb, bilateral (principal); Z53.21 Procedure and treatment not carried out due to patient leaving prior to being seen by health care provider
CPT/HCPCS: 99281

== ENCOUNTER 2017-06-25 19:09 | Emergency (ER) | payer OTHER ==
[~2017-06-25] VITALS: Ht 180.3 cm; Wt 85.0 kg
[2017-06-25] MEDS ORDERED: HALOPERIDOL LACTATE 5 MG/ML AMP IM ONE (19:15)
[2017-06-25] MEDS ORDERED: LORazepam 2 MG/ML VIAL IM ONE (19:15)
[2017-06-25 19:26] VITALS: BP 139/84; PULSE 114; RESP 18; TEMP 99; O2SAT 99
[2017-06-25 20:53] LABS: AUTOMATED NEUTROPHIL # 1.8 TH/MM3 (1.8-7.7); BASOPHIL % 0.7 % (0.0-2.0); HEMATOCRIT 34.5 % (39.0-51.0); HEMO FLAGS DIFF FINAL; LYMPH % 40.4 % (9.0-44.0); LYMPHOCYTE # 1.7 TH/MM3 (1.0-4.8); MEAN CELL VOLUME 98.2 FL (80.0-100.0); MEAN CORPUSCULAR HEMOGLOBIN 33.2 PG (27.0-34.0); MEAN CORPUSCULAR HGB CONC 33.8 % (32.0-36.0); MONO % 15.3 % (0.0-8.0); NEUT % 42.6 % (16.0-70.0); PLATELET COUNT 304 TH/MM3 (150-450); RED BLOOD COUNT 3.51 MIL/MM3 (4.50-5.90); RED CELL DISTRIBUTION WIDTH 16.5 % (11.6-17.2); WHITE BLOOD COUNT 4.3 TH/MM3 (4.0-11.0)
[2017-06-25 21:15] LABS: ALKALINE PHOSPHATASE 85 U/L (45-117); ALT (GPT) 31 U/L (12-78); TOTAL BILIRUBIN ADULT 0.4 MG/DL (0.2-1.0)
[2017-06-25 21:16] LABS: ANION GAP 12 MEQ/L (5-15); AST (GOT) 34 U/L (15-37); BICARBONATE 22.5 MEQ/L (21.0-32.0); BLOOD UREA NITROGEN 6 MG/DL (7-18); CHLORIDE 104 MEQ/L (98-107); GLOMERULAR FILTRATION RATE 126 ML/MIN (>89); POTASSIUM 3.9 MEQ/L (3.5-5.1); SODIUM (NA) 138 MEQ/L (136-145)
[2017-06-25 22:08] VITALS: BP 108/66; PULSE 81; RESP 16; O2SAT 100
--- NOTE | 2017-06-25 22:09 | PD ---
HPI Chief Complaint: Psychiatric Symptoms Time Seen by Provider: 19:14 Travel History International Travel<30 days: No Contact w/Intl Traveler<30days: No Traveled to known affect area: No History of Present Illness HPI 52-year-old male came to the emergency room with history of being violent and combative. He was extremely verbal profanities spoken. It was difficult to have a conversation. I was unable to get any history from this patient. Security was with him. Patient was under Phan act. As per the nursing note patient was heavily intoxicated and was found passed out. [facility] Past Medical History Narrative Medical List of his past medical, surgical, social and family history is reviewed from the nursing note. Arthritis: Yes (RA) Heart Rhythm Problems: No Cardiac Catheterization: No Cardiovascular Problems: Yes (HTN) High Cholesterol: No Chest Pain: Yes Congestive Heart Failure: No Diabetes: No Diminished Hearing: No Heparin Induced Thrombocytopen: No Hypertension: Yes Musculoskeletal: Yes (CHRONIC PAIN, SCIATICA) Immunizations Current: Yes Seizures: Yes Past Surgical History Coronary Artery Bypass Graft: No Social History Alcohol Use: Yes (DAILY) Tobacco Use: Yes (1 PPD) Substance Use: No Allergies-Medications (Allergen,Severity, Reaction): Coded Allergies: ibuprofen (Unverified Allergy, Severe, Hives, 06/25/17) lisinopril (Unverified Allergy, Severe, Rash, 06/25/17) metoprolol (Unverified Allergy, Severe, 06/25/17) naproxen (Unverified Allergy, Severe, Hives, 06/25/17) tramadol (Unverified Allergy, Severe, Hives, 06/25/17) Comments List of his allergies reviewed from the nursing note. Reported Meds & Prescriptions Reported Meds & Active Scripts Active Zofran Odt (Ondansetron Odt) 4 Mg Tab 4 Mg SL Q6HR PRN Narrative Medication List of his home medications reviewed from the nursing note. Review of Systems Except as stated in HPI: all other systems reviewed are Neg Physical Exam Narrative GENERAL: Intoxicated, aggressive, verbal profanity SKIN: Focused skin assessment warm/dry. HEAD: Atraumatic. Normocephalic. EYES: Pupils equal and round. No scleral icterus. No injection or drainage. ENT: No nasal bleeding or discharge. Mucous membranes pink and moist. NECK: Trachea midline. No JVD. CARDIOVASCULAR: Regular rate and rhythm. No murmur appreciated. RESPIRATORY: No accessory muscle use. Clear to auscultation. Breath sounds equal bilaterally. GASTROINTESTINAL: Abdomen soft, non-tender, nondistended. Hepatic and splenic margins not palpable. MUSCULOSKELETAL: No obvious deformities. No clubbing. No cyanosis. No edema. NEUROLOGICAL: Awake and alert. No obvious cranial nerve deficits. Motor grossly within normal limits. Normal speech. PSYCHIATRIC: Alcohol drainage, poor insight and judgment Data Data Last Documented VS Vital Signs Date Time Temp Pulse Resp B/P (MAP) Pulse Ox O2 Delivery O2 Flow Rate FiO2 06/26/17 08:59 99.0 83 18 153/87 (109) 100 06/26/17 06:58 Room Air Orders Orders Complete Blood Count With Diff (06/25/17 19:14) Comprehensive Metabolic Panel (06/25/17 19:14) Psych Screen (06/25/17 19:14) Haloperidol Inj (Haldol Inj) (06/25/17 19:15) Lorazepam Inj (Ativan Inj) (06/25/17 19:15) Drug Screen, Random Urine (06/25/17 19:14) Labs Laboratory Tests Test 06/25/17 19:30 06/26/17 04:15 White Blood Count 4.3 TH/MM3 Red Blood Count 3.51 MIL/MM3 Hemoglobin 11.6 GM/DL Hematocrit 34.5 % Mean Corpuscular Volume 98.2 FL Mean Corpuscular Hemoglobin 33.2 PG Mean Corpuscular Hemoglobin Concent 33.8 % Red Cell Distribution Width 16.5 % Platelet Count 304 TH/MM3 Mean Platelet Volume 6.9 FL Neutrophils (%) (Auto) 42.6 % Lymphocytes (%) (Auto) 40.4 % Monocytes (%) (Auto) 15.3 % Eosinophils (%) (Auto) 1.0 % Basophils (%) (Auto) 0.7 % Neutrophils # (Auto) 1.8 TH/MM3 Lymphocytes # (Auto) 1.7 TH/MM3 Monocytes # (Auto) 0.7 TH/MM3 Eosinophils # (Auto) 0.0 TH/MM3 Basophils # (Auto) 0.0 TH/MM3 CBC Comment DIFF FINAL Differential Comment Blood Urea Nitrogen 6 MG/DL Creatinine 0.78 MG/DL Random Glucose 86 MG/DL Total Protein 8.5 GM/DL Albumin 3.3 GM/DL Calcium Level 8.3 MG/DL Alkaline Phosphatase 85 U/L Aspartate Amino Transf (AST/SGOT) 34 U/L Alanine Aminotransferase (ALT/SGPT) 31 U/L Total Bilirubin 0.4 MG/DL Sodium Level 138 MEQ/L Potassium Level 3.9 MEQ/L Chloride Level 104 MEQ/L Carbon Dioxide Level 22.5 MEQ/L Anion Gap 12 MEQ/L Estimat Glomerular Filtration Rate 126 ML/MIN Urine Opiates Screen NEG Urine Barbiturates Screen NEG Urine Amphetamines Screen NEG Urine Benzodiazepines Screen NEG Urine Cocaine Screen NEG Urine Cannabinoids Screen NEG MDM Medical Decision Making Medical Screen Exam Complete: Yes Emergency Medical Condition: Yes Medical Record Reviewed: Yes Differential Diagnosis Alcohol drainage, substance-induced psychosis Narrative Course 10:11 PM patient has been medically cleared. He initially had to be chemically restrained. He is currently asleep and vital signs are stable. Procedures EKG Prior to Arrival: Yolie Moslye MD Jun 25, 2017 22:09
[2017-06-25 22:31] VITALS: BP 113/73; PULSE 77; RESP 19; O2SAT 97
[2017-06-26 02:35] VITALS: BP 121/69; PULSE 89; RESP 18; O2SAT 95
[2017-06-26 06:58] VITALS: BP 153/87; PULSE 83; RESP 16; O2SAT 100
[2017-06-26 08:59] VITALS: BP 153/87; TEMP 99
--- NOTE | 2017-06-26 09:10 | PD ---
History of Present Illness Chief Complaint: Psychiatric Symptoms Time Seen by Provider: 08:40 Travel History International Travel<30 Days: No Contact w/Intl Traveler<30days: No Known affected area: No Legal Status Legal Status: Phan Act Phan Act Signed By: Chastity Forman Phan Act Comment: 6:55 pm History of Present Illness: History of Present Illness HPI 52-year-old male with history of alcohol use disorder who presents under a Phan act initiated by law enforcement. The Phan act states " Stephen was found passed out at [address] as a result of being intoxicated. During the investigation Stephen walked into the roadway while traffic was heavy and moving ". The patient was verbally abusive towards staff and required ETO. He was allowed to sober up in secure environment. No BAL obtained. EMR is reviewed. he has had multiple visits to Ed for evaluation of alcohol related issues mostly in an intoxicated state. This morning he is seen with nurse, Daysi. he is awake, alert, oriented and clinically sober. Walks well with no gait disturbance. There is not tremors or any other signs of withdrawal. Speech is clear, logical and coherent. He denies any suicidal or homicidal ideation. He admits to having been drinking during the day. He reports that e was with his brother and a friend and since they had been drinking they decided to walk. He states that he was tired and decided to rest at the [address]. In terms of alcohol use he does not belief that he has a problem with such and states " I don't have a problem since my liver is fine". PFSH Past Medical History Arthritis: Yes (RA) Heart Rhythm Problems: No Cardiac Catheterization: No Cardiovascular Problems: Yes (HTN) High Cholesterol: No Chest Pain: Yes Congestive Heart Failure: No Diabetes: No Diminished Hearing: No Heparin Induced Thrombocytopen: No Hypertension: Yes Musculoskeletal: Yes (CHRONIC PAIN, SCIATICA) Immunizations Current: Yes Seizures: Yes Past Surgical History Coronary Artery Bypass Graft: No Psychiatric History Psychiatric History Hx Psychiatric Treatment: Denies History of Inpatient Treatment: No Guns or firearms in home: No Social History Born In [facility]. has been in [facility] x 22 years. Completed a masters degree. . Is self employed. Hx Alcohol Use: Yes (DAILY) Hx Tobacco Use: Yes (1 PPD) Hx Substance Use: Yes Substance Use Type: Alcohol, Nicotine/Cigarettes Hx of Substance Use Treatment: No Family Psychiatric History Negative Allergies-Medications (Allergen,Severity, Reaction): Coded Allergies: ibuprofen (Unverified Allergy, Severe, Hives, 06/25/17) lisinopril (Unverified Allergy, Severe, Rash, 06/25/17) metoprolol (Unverified Allergy, Severe, 06/25/17) naproxen (Unverified Allergy, Severe, Hives, 06/25/17) tramadol (Unverified Allergy, Severe, Hives, 06/25/17) Reported Meds & Prescriptions Reported Meds & Active Scripts Active Zofran Odt (Ondansetron Odt) 4 Mg Tab 4 Mg SL Q6HR PRN Review of Systems Except as stated in HPI: all other systems reviewed are Neg Exam Alert: Yes [place]: Person (ox4) Mood: Calm Affect: Appropriate Speech: Clear, Logical Eye Contact: Normal Memory Intact: Comment (No impairment) Hallucinations: Other (Negative) Delusions: No Suicidal: Ideation (Denies any) Homicidal: Ideation (Denies any) Insight/Judgement Poor. Not impaired. MDM Medical Decision Making Medical Record Reviewed: Yes Assessment/Plan 52-year-old male with history of alcohol use disorder who presents under a Phan act initiated by law enforcement. The Phan act states " Stephen was found passed out at [address] as a result of being intoxicated. During the investigation Stephen walked into the roadway while traffic was heavy and moving ". The patient was verbally abusive towards staff and required ETO. Patient allowed to sober up clinically. he presents no suicidal or homicidal ideation, no psychosis, no kyra. He presents no unstable mental illness as defined under the Phan act. He does present symptoms associated with alcohol use disorder but he is not accepting he has a b problem and does not accept help for such. Patient is psychiatrically clear for discharge from the ED. BA is lifted . Orders Orders Complete Blood Count With Diff (06/25/17 19:14) Comprehensive Metabolic Panel (06/25/17 19:14) Psych Screen (06/25/17 19:14) Haloperidol Inj (Haldol Inj) (06/25/17 19:15) Lorazepam Inj (Ativan Inj) (06/25/17 19:15) Drug Screen, Random Urine (06/25/17 19:14) Diet Regular Basic (06/26/17 Breakfast) Results Vital Signs Date Time Temp Pulse Resp B/P (MAP) Pulse Ox O2 Delivery O2 Flow Rate FiO2 06/26/17 06:58 83 16 153/87 (109) 100 Room Air 06/26/17 02:35 89 18 121/69 (86) 95 Room Air 06/25/17 22:31 77 19 113/73 (86) 97 Room Air 06/25/17 22:08 81 16 108/66 (80) 100 Room Air 06/25/17 19:26 99.0 114 18 139/84 (102) 99 Laboratory Tests Test 06/25/17 19:30 06/26/17 04:15 White Blood Count 4.3 Red Blood Count 3.51 Hemoglobin 11.6 Hematocrit 34.5 Mean Corpuscular Volume 98.2 Mean Corpuscular Hemoglobin 33.2 Mean Corpuscular Hemoglobin Concent 33.8 Red Cell Distribution Width 16.5 Platelet Count 304 Mean Platelet Volume 6.9 Neutrophils (%) (Auto) 42.6 Lymphocytes (%) (Auto) 40.4 Monocytes (%) (Auto) 15.3 Eosinophils (%) (Auto) 1.0 Basophils (%) (Auto) 0.7 Neutrophils # (Auto) 1.8 Lymphocytes # (Auto) 1.7 Monocytes # (Auto) 0.7 Eosinophils # (Auto) 0.0 Basophils # (Auto) 0.0 CBC Comment DIFF FINAL Differential Comment Blood Urea Nitrogen 6 Creatinine 0.78 Random Glucose 86 Total Protein 8.5 Albumin 3.3 Calcium Level 8.3 Alkaline Phosphatase 85 Aspartate Amino Transf (AST/SGOT) 34 Alanine Aminotransferase (ALT/SGPT) 31 Total Bilirubin 0.4 Sodium Level 138 Potassium Level 3.9 Chloride Level 104 Carbon Dioxide Level 22.5 Anion Gap 12 Estimat Glomerular Filtration Rate 126 Urine Opiates Screen NEG Urine Barbiturates Screen NEG Urine Amphetamines Screen NEG Urine Benzodiazepines Screen NEG Urine Cocaine Screen NEG Urine Cannabinoids Screen NEG Diagnosis Primary Impression: Alcohol dependence with acute alcoholic intoxication Psychiatrically Cleared: Yes Departure Forms: Tests/Procedures Patient Instructions: General Instructions, Mood Disorders (ED), Medical Clearance for Psychiatric Care (ED) Additional Instructions: DISCHARGE HOME DIAGNOSIS SUBSTANCE INDUCED MOOD DISORDER FOLLOW-UP WITH PCP NEEDED RETURN TO ED FOR WORSENING PROBLEMS Disposition: 01 DISCHARGE HOME Condition: Stable Sara Call Jun 26, 2017 09:10
== END 2017-06-26 09:03 | disposition home or self-care (01) ==
LOC: NEPD 19:09 → NEPJ 06-26 09:03
DX: F10.229 Alcohol dependence with intoxication, unspecified (principal); M06.9 Rheumatoid arthritis, unspecified; I10 Essential (primary) hypertension; F17.200 Nicotine dependence, unspecified, uncomplicated; Z79.899 Other long term (current) drug therapy; Z88.6 Allergy status to analgesic agent; Z88.5 Allergy status to narcotic agent; Z88.8 Allergy status to other drugs, medicaments and biological substances
CPT/HCPCS: 80053; 80307; 85025; 96372; 99284; J1630; J2060